=== PATIENT | male | born 1965 | race African-American/Black ===

== ENCOUNTER 2016-12-26 10:24 | Inpatient (IN) | payer OTHER ==
--- NOTE | 2016-12-26 11:09 | PDOC ---
History of Present Illness - General History Source: Patient, Old Records Exam Limitations: No Limitations - History of Present Illness Initial Comments: 12/26/16 13:33 The patient is a 51 year old male with past medical history of asthma, COPD, diabetes, hypertension, dyslipidemia, recurrent hidradenitis suppurativa, obesity, and on home oxygen, who presents with 3 day history of left groin pain. Patient states that he has never had this pain before. He describes the pain as sharp, 10/10 in severity, and radiating to left lower quadrant. The patient is also complaining of some drainage from axilla bilaterally (L>R). He has been treating his symptoms with hot compresses which has resulted in mild alleviation. Patient endorsed dull headache, 4/10 in severity, circumferential and worse with movement. The patient took advil once and experience moderate alleviate of pain. <Marciano Rdz - Last Filed: 12/26/16 13:33> <Jazmine Foreman - Last Filed: 01/03/17 22:24> - General Chief Complaint: Abscess Boil Stated Complaint: ABSCESS ON GROIN, BOTH AXILLA Time Seen by Provider: 12/26/16 11:09 Past History <Marciano Rdz - Last Filed: 12/26/16 13:33> - Past Medical History Asthma: Yes Cancer: No COPD: Yes Diabetes: Yes (on oral meds) HTN: Yes Hypercholesterolemia: Yes Seizures: No - Surgical History Neurologic Surgery: No - Family Disease History Family Disease History: Diabetes: Father, Heart Disease: Father - Psycho/Social/Smoking Cessation Hx Anxiety: No Suicidal Ideation: No Smoking Status: Yes Smoking History: Former smoker Have you smoked in the past 12 months: Yes Number of Cigarettes Smoked Daily: 3 If you are a former smoker, when did you quit?: 4 MO Information on smoking cessation initiated: No 'Breaking Loose' booklet given: 09/28/15 Hx Alcohol Use: No Drug/Substance Use Hx: No Substance Use Type: None Hx Substance Use Treatment: No <Jazmine Foreman - Last Filed: 01/03/17 22:24> - Past Medical History Allergies/Adverse Reactions: Allergies Allergy/AdvReac Type Severity Reaction Status Date / Time celecoxib [From Celebrex] AdvReac Severe Rectal Verified 12/26/16 10:31 bleeding & hemoptysis naproxen [From Naprosyn] AdvReac Verified 12/26/16 10:31 Home Medications: Ambulatory Orders Albuterol 0.083% Nebulizer Silvia [Ventolin 0.083% Nebulizer Soln -] 1 neb NEB Q4H PRN 04/10/14 Albuterol Sulfate Inhaler - [Ventolin HFA Inhaler -] 2 inh PO Q4H PRN 04/10/14 Aspirin [Aspirin EC] 81 mg PO DAILY 04/10/14 Furosemide [Lasix -] 80 mg PO DAILY 04/10/14 Methadone [Dolophine -] 110 mg PO DAILY 04/10/14 Lisinopril [Prinivil] 40 mg PO DAILY 04/11/15 Metformin HCl [Glucophage -] 500 mg PO BID 12/26/16 Amlodipine Besylate [Norvasc -] 5 mg PO DAILY tablet 12/29/16 Levofloxacin [Levaquin -] 750 mg PO DAILY #7 tablet 12/29/16 Neomy Sulf/Bacitrac Zn/Poly [Neosporin Top Ointment -] 1 applic TP BID applic 12/29/16 Oxycodone HCl [Roxicodone -] 10 mg PO Q4H PRN #0 tablet MDD 40 12/29/16 Metronidazole [Flagyl -] 500 mg PO TID #29 tablet 12/30/16 Review of Systems - Review of Systems Able to Perform ROS?: Yes Comments:: 12/26/16 13:34 GENERAL/CONSTITUTIONAL: No fever or chills. No weakness. HEAD, EYES, EARS, NOSE AND THROAT: No change in vision. No ear pain or discharge. No sore throat. CARDIOVASCULAR: No chest pain or shortness of breath. RESPIRATORY: No cough, wheezing, or hemoptysis. GASTROINTESTINAL: (+) LLQ pain. No nausea, vomiting, diarrhea or constipation. GENITOURINARY: No dysuria, frequency, or change in urination. MUSCULOSKELETAL: (+) Left groin pain. Bilateral axilla drainage. No joint or muscle swelling or pain. No neck or back pain. SKIN: No rash NEUROLOGIC: (+) Headache No Vertigo, loss of consciousness, or change in strength/sensation. ENDOCRINE: No increased thirst. No abnormal weight change. HEMATOLOGIC/LYMPHATIC: No anemia, easy bleeding, or history of blood clots. ALLERGIC/IMMUNOLOGIC: No hives or skin allergy. <Marciano Rdz - Last Filed: 12/26/16 13:33> *Physical Exam - Vital Signs Last Vital Signs Temp Pulse Resp BP Pulse Ox 98.7 F 79 20 157/72 95 12/26/16 10:26 12/26/16 10:26 12/26/16 10:26 12/26/16 10:26 12/26/16 10:26 - Physical Exam Comments: 12/26/16 13:34 GENERAL: Awake, alert, and fully oriented, in no acute distress HEAD: No signs of trauma EYES: PERRLA, EOMI, sclera anicteric, conjunctiva clear ENT: Auricles normal inspection, hearing grossly normal, nares patent, oropharynx clear without exudates. Moist mucosa NECK: Normal ROM, supple, no lymphadenopathy, JVD, or masses LUNGS: Breath sounds equal, clear to auscultation bilaterally. No wheezes, and no crackles HEART: Regular rate and rhythm, normal S1 and S2, no murmurs, rubs or gallops ABDOMEN: Soft, nontender, normoactive bowel sounds. No guarding, no rebound. No masses PENIS: (+) Scrotal cellulitis EXTREMITIES: Normal range of motion, no edema. No clubbing or cyanosis. No cords, erythema, or tenderness NEUROLOGICAL: Cranial nerves II through XII grossly intact. Normal speech, normal gait SKIN: Warm, Dry, normal turgor, no rashes or lesions noted. <Marciano Rdz - Last Filed: 12/26/16 13:33> - Vital Signs Last Vital Signs Temp Pulse Resp BP Pulse Ox 98.7 F 79 20 157/72 95 12/26/16 10:26 12/26/16 10:26 12/26/16 10:26 12/26/16 10:26 12/26/16 10:26 <Jazmine Foreman - Last Filed: 01/03/17 22:24> ED Treatment Course - LABORATORY CBC & Chemistry Diagram: 12/30/16 06:00 12/28/16 05:35 <Jazmine Foreman - Last Filed: 01/03/17 22:24> Medical Decision Making - Medical Decision Making 07/24/17 22:23 pt presents to the ED with cellulitis of the scrotum. History of hydradenitis with multiple abscesses. No clear area of fluctuance identified on exam or on bedside US. Given location of cellulitis and history of DM, will admit to medicine for IV antibiotics. <Jazmine Foreman - Last Filed: 01/03/17 22:24> *DC/Admit/Observation/Transfer - Attestations Scribe Attestion: 12/26/16 13:34 Documentation prepared by Marciano Rdz, acting as medical imaging technician for Jazmine Foreman MD. <Marciano Rdz - Last Filed: 12/26/16 13:33> - Discharge Dispostion Admit: Yes Decision to Admit order Date/Time: 12/26/16 15:19 <Jazmine Foreman - Last Filed: 01/03/17 22:24> Diagnosis at time of Disposition: Cellulitis, scrotum - Discharge Dispostion Disposition: VNS/HOME HEALTH CARE Condition at time of disposition: Improved - Prescriptions - Referrals
[2016-12-26] MEDS ORDERED: morphine CARPU-JECT 4 MG/1 ML DISP.SYRIN IVPUSH ONE (13:28)
[2016-12-26] MEDS ORDERED: AMPICILLIN NA/SULBACTAM NA 3 GM in SODIUM CHLORIDE 100 ML IVPB ONE (13:29)
[2016-12-26] MEDS ORDERED: NYSTATIN 100000 UNIT/GM TOPICAL OINTMENT 15 GM TUBE TP SCH (13:30)
[2016-12-26 13:39] LABS: BASOPHIL 0.3 % (0-2.0); EOSINOPHIL 0.2 % (0-4.5); MCH 23.2 pg (25.7-33.7); MCHC 31.3 g/dl (32.0-35.9); MEAN CELL VOLUME 74.1 fl (80-96); MEAN PLT VOLUME 7.9 fl (7.5-11.1); NEUTROPHILS 70.2 % (42.8-82.8); PLATELET COUNT 229 K/MM3 (134-434); RDW 16.6 % (11.9-15.9); WHITE BLOOD COUNT 9.6 K/mm3 (4.0-10.0)
[2016-12-26] MEDS ORDERED: CLINDAMYCIN 600MG PREMIX IVPB 50 ML IVPB ONE ×2 (13:41→14:00)
[2016-12-26] MEDS ORDERED: morphine CARPU-JECT 4 MG/1 ML DISP.SYRIN ONE (13:59)
[2016-12-26 14:04] LABS: ALBUMIN 3.3 g/dl (3.4-5.0); ANION GAP 6 (8-16); BILIRUBIN,TOTAL 0.2 mg/dL (0.2-1.0); CALCIUM 8.8 mg/dL (8.5-10.1); CO2 37 mmol/L (21-32); CREATININE 0.7 mg/dL (0.7-1.3); GLUCOSE,RANDOM 90 mg/dL (74-106); SGOT/AST 14 U/L (15-37); SGPT/ALT 15 U/L (12-78); TOT PROT 7.6 g/dl (6.4-8.2)
[2016-12-26 14:05] LABS: ALK PHOS 87 U/L (45-117)
--- NOTE | 2016-12-26 18:07 | HP ---
CHIEF COMPLAINT: left scrotal swelling and pain PCP: Dr. Rodriguez HISTORY OF PRESENT ILLNESS: Patient is a 51 year old male with a significant past medical history of asthma, COPD (home oxygen depending @ 3 liters at home) , diabetes, hypertension, dyslipidemia, polysubstance abuse, recurrent hidradenitis suppurativa, morbid obesity and chronic back pain. He presents to the ED today with a 3 day history of left groin pain. Patient states that he has never had this pain before. He describes the pain as sharp, 10/10 in severity, and radiating to left lower quadrant. Patient further states that he has drainage from axilla bilaterally (L>R). He has been treating his symptoms with hot compresses with some relief of the pain. He is on methadone and attends 2 [facility] methadone clinic. ER course was notable for: (1) WBC 9.6 (2) Lactic acid 1.4 (3) hidradenitis suppravita with increased drainage of left axilla with multiple open lesions (4) left scrotal induration, + pain, awaiting scrotal ultrasound Recent Travel: denies PAST MEDICAL HISTORY: asthma, COPD (home oxygen depending @ 3 liters at home), diabetes, hypertension, dyslipidemia, recurrent hidradenitis suppurativa, and morbid obesity PAST SURGICAL HISTORY: Social History: Smoking: denies Alcohol: denies Drugs: denies Family History: Allergies celecoxib [From Celebrex] Adverse Reaction (Severe, Verified 12/26/16 10:31) Rectal bleeding & hemoptysis naproxen [From Naprosyn] Adverse Reaction (Verified 12/26/16 10:31) HOME MEDICATIONS: Home Medications Medication Instructions Recorded Albuterol 0.083% Nebulizer Sivlia 1 neb NEB Q4H PRN 04/10/14 [Ventolin 0.083% Nebulizer Soln -] Albuterol Sulfate Inhaler - 2 inh PO Q4H PRN 04/10/14 [Ventolin HFA Inhaler -] Aspirin [Aspirin EC] 81 mg PO DAILY 04/10/14 Furosemide [Lasix -] 80 mg PO DAILY 04/10/14 Methadone [Dolophine -] 110 mg PO DAILY 04/10/14 Lisinopril [Prinivil] 40 mg PO DAILY 04/11/15 Metformin HCl [Glucophage -] 500 mg PO BID 12/26/16 REVIEW OF SYSTEMS CONSTITUTIONAL: Absent: fever, chills, diaphoresis, generalized weakness, malaise, loss of appetite, weight change HEENT: Absent: rhinorrhea, nasal congestion, throat pain, throat swelling, difficulty swallowing, mouth swelling, ear pain, eye pain, visual changes CARDIOVASCULAR: Absent: chest pain, syncope, palpitations, irregular heart rate, lightheadedness , peripheral edema RESPIRATORY: Absent: cough, shortness of breath, dyspnea with exertion, orthopnea, wheezing, stridor, hemoptysis GASTROINTESTINAL: Absent: abdominal pain, abdominal distension, nausea, vomiting, diarrhea, constipation, melena, hematochezia GENITOURINARY: Absent: dysuria, frequency, urgency, hesitancy, hematuria, flank pain, genital pain MUSCULOSKELETAL: Absent: myalgia, arthralgia, joint swelling, back pain, neck pain SKIN: Absent: rash, itching, pallor HEMATOLOGIC/IMMUNOLOGIC: Absent: easy bleeding, easy bruising, lymphadenopathy, frequent infections ENDOCRINE: Absent: unexplained weight gain, unexplained weight loss, heat intolerance, cold intolerance NEUROLOGIC: Absent: headache, focal weakness or paresthesias, dizziness, unsteady gait, seizure, mental status changes, bladder or bowel incontinence PSYCHIATRIC: Absent: anxiety, depression, suicidal or homicidal ideation, hallucinations. PHYSICAL EXAMINATION GENERAL: Awake, alert, and fully oriented, in no acute distress. HEAD: Normal with no signs of trauma. EYES: Pupils equal, round and reactive to light, extraocular movements intact, sclera anicteric, conjunctiva clear. No lid lag. EARS, NOSE, THROAT: Ears normal, nares patent, oropharynx clear without exudates. Moist mucous membranes. NECK: Normal range of motion, supple without lymphadenopathy, JVD, or masses. LUNGS: diminished breath sounds, expiratory wheezing HEART: Regular rate and rhythm, normal S1 and S2 without murmur, rub or gallop. ABDOMEN: (+) LLQ pain. No nausea, vomiting, diarrhea or constipation. MUSCULOSKELETAL: Normal range of motion at all joints. No bony deformities or tenderness. No CVA tenderness. UPPER EXTREMITIES: 2+ pulses, warm, well-perfused. No cyanosis. No clubbing. No peripheral edema. LOWER EXTREMITIES: 2+ pulses, warm, well-perfused. No calf tenderness. No peripheral edema. NEUROLOGICAL: Normal speech. Normal gait. PSYCHIATRIC: Cooperative. Good eye contact. Appropriate mood and affect. SKIN: (+) Left groin pain. Bilateral axilla drainage, +recurrent hidradenitis suppurativa of groin, axilla, buttocks GENITOURINARY: No dysuria, frequency, or change in urination. ASSESSMENT/PLAN: Patient is a 51 year old male with a significant past medical history of asthma , COPD (home oxygen depending @ 3 liters at home), diabetes, hypertension, dyslipidemia, recurrent hidradenitis suppurativa, polysubstance abuse, morbid obesity and chronic back pain. He presents to the ED today with a 3 day history of left groin pain. Patient states that he has never had this pain before. He describes the pain as sharp, 10/10 in severity, and radiating to left lower quadrant. Patient further states that he has drainage from axilla bilaterally (L>R). He has been treating his symptoms with hot compresses with some relief of the pain. He is on methadone and attends 2 [facility] methadone clinic. ID: Cellulitis of left scrotum with +recurrent hidradenitis suppurativa of groin, axilla, buttocks Assessment/Plan: No signs of sepsis: patient is afebrile, no leukocytosis, lactic acid normal, blood cultures and wound cultures sent Will treat with Clindamycin 600mg IVPB for multiple abscess/open lesions, pt is also a diabetic. ID consult for further antibiotic therapy recommendations Patient has recurrent skin infection which he treats with triple antibiotic topical therapy, but there are open lesions of the left axilla Scrotal ultrasound pending to rule out scrotal abscess Has a wound care physician whom he follows outpatient Monitor CBC, monitor labs and vitals ID consult Cardiology: Hypertension Assessment/Plan: On Lasix 80mg, on Lisinopril 40mg daily Monitor BP Trend Psyche: Polysubstance abuse Assessment/Plan: Methadone 110mg on home med rec Dr. Titi Anton consulted for Methadone monitoring and orders Pulmonary: COPD/Asthma Assessment/Plan: In no acute exacerbation Home oxygen dependent @ 3 liters Albuterol PRN Endocrine: Diabetes Melliltus Assessment/Plan: hmga1c in a.m. Hold metformin, order Novolog sliding scale F.E.N. Fluids: tolerating PO Electrolytes: monitor Nutrition: diabetic diet Prophylaxis: DVT: Lovenox 40mg daily GI: deferred Disposition: Requires inpatient hospitalization. Full code.
[2016-12-26] MEDS ORDERED: oxyCODONE HCL 5 MG TABLET PO PRN (19:00)
[2016-12-26 19:20] VITALS: BMI 43.5
[2016-12-26] MEDS: oxyCODONE HCL 5 MG TABLET PO PRN (20:51)
[2016-12-26] MEDS: CLINDAMYCIN 600MG PREMIX IVPB 50 ML IVPB SCH (20:51)
[2016-12-26] MEDS: INSULIN SLIDING SCALE (NOVOLOG) 1 VIAL SQ SCH (21:43)
[2016-12-26] MEDS: NEOMYCIN/POLYMYXIN/BACITRACIN (TRIPLE ANTIBIOTIC) 28 GM OINTMENT TP SCH (21:44)
[2016-12-26] MEDS ORDERED: NEOMYCIN/POLYMYXIN/BACITRACIN (TRIPLE ANTIBIOTIC) 28 GM OINTMENT TP SCH (22:00)
[2016-12-27] MEDS: oxyCODONE HCL 5 MG TABLET PO PRN ×4 (00:49→23:36)
[2016-12-27] MEDS: CLINDAMYCIN 600MG PREMIX IVPB 50 ML IVPB SCH ×2 (02:54→08:16)
[2016-12-27] MEDS: INSULIN SLIDING SCALE (NOVOLOG) 1 VIAL SQ SCH ×4 (06:30→21:25)
[2016-12-27] MEDS ORDERED: METHADONE HCL 10 MG TABLET ONE (06:43)
[2016-12-27] MEDS ORDERED: METHADONE HCL 40 MG DISPERSABLE TABLET ONE (06:43)
[2016-12-27] MEDS: METHADONE 80 MG, METHADONE 30 MG PO SCH (06:44)
[2016-12-27 08:10] LABS: BASOPHIL 0.4 % (0-2.0); EOSINOPHIL 0.6 % (0-4.5); MCHC 30.4 g/dl (32.0-35.9); MEAN CELL VOLUME 75.6 fl (80-96); MEAN PLT VOLUME 7.9 fl (7.5-11.1); NEUTROPHILS 67.4 % (42.8-82.8); PLATELET COUNT 208 K/MM3 (134-434); RDW 16.7 % (11.9-15.9); WHITE BLOOD COUNT 9.3 K/mm3 (4.0-10.0)
[2016-12-27] MEDS: ENOXAPARIN NA (PORCINE) 40 MG/0.4 ML DISP.SYRIN SQ SCH (09:14)
[2016-12-27] MEDS: LISINOPRIL 20 MG TABLET (FP) PO SCH (09:15)
[2016-12-27] MEDS: NEOMYCIN/POLYMYXIN/BACITRACIN (TRIPLE ANTIBIOTIC) 28 GM OINTMENT TP SCH ×2 (09:15→21:25)
[2016-12-27] MEDS: ASPIRIN COATED 81 MG TABLET.EC PO SCH (09:15)
[2016-12-27] MEDS: FUROSEMIDE 40 MG TABLET (FP) PO SCH (09:15)
[2016-12-27] MEDS ORDERED: METHADONE HCL 40 MG DISPERSABLE TABLET PO SCH (10:00)
--- NOTE | 2016-12-27 10:01 | PN ---
Progress Note (short form) - Note Progress Note: ID Consult dictated L scrotal abscess Possible sepsis secondary to scrotal abscess Diabetes mellitus Hx Hydradenitis supprativa Hx polysubstance abuse- HIV (-) per pt Await c/s Urology evaulation Empiric Vancomycin/ Zosyn Decline HIV testing
[2016-12-27] MEDS ORDERED: INSULIN (NOVOLOG) ASPART 100 UNITS/ML 10ML VIAL ONE (11:04)
--- NOTE | 2016-12-27 11:15 | PN ---
Progress Note (short form) - Note Progress Note: Subjective: The patient was seen and examined at the bedside, he reports he is feeling better today but has left scrotal abscess. He also reports hidradenitis suppurative b/l axilla, in sacral area, and under breasts. Current Medications Generic Name Dose Route Start Last Admin Trade Name Freq PRN Reason Stop Dose Admin Albuterol Sulfate amp 12/27/16 11:18 Ventolin 0.083% Nebulizer Soln - NEB Q4H PRN ASTHMA Albuterol Sulfate 2 puff 12/27/16 11:18 Ventolin Hfa Inhaler - IH Q4H PRN ASTHMA Aspirin 81 mg 12/27/16 10:00 12/27/16 09:15 Ecotrin - PO 81 mg DAILY SHAYLA Administration Enoxaparin Sodium 40 mg 12/27/16 10:00 12/27/16 09:14 Lovenox - SQ 40 mg DAILY SHAYLA Administration Furosemide 80 mg 12/27/16 10:00 12/27/16 09:15 Lasix - PO 80 mg DAILY SHAYLA Administration Piperacillin Sod/Tazobactam Sod 100 mls @ 200 mls/hr 12/27/16 11:30 Zosyn 4.5gm Ivpb (Pre-Docked) IVPB Q6H-IV SHAYLA Protocol Vancomycin HCl 250 mls @ 166.667 mls/hr 12/27/16 12:00 Vancomycin (Pre-Docked) IVPB Q12H SHAYLA Insulin Aspart 1 vial 12/26/16 22:00 12/27/16 11:15 Novolog Vial Sliding Scale - SQ 2 unit ACHS SHAYLA Administration Protocol Lisinopril 40 mg 12/27/16 10:00 12/27/16 09:15 Prinivil PO 40 mg DAILY SHAYLA Administration Metformin HCl 500 mg 12/27/16 11:30 Glucophage - PO BID SHAYLA Methadone HCl 80 mg/ Methadone 110 mg 12/27/16 06:45 12/27/16 06:44 HCl 30 mg PO 110 mg DAILY@0600 SHAYLA Administration Neomycin/Polymyxin/Bacitracin 1 applic 12/26/16 22:00 12/27/16 09:15 Neosporin Topical Ointment - TP 1 applic BID SHAYLA Administration Oxycodone HCl 5 mg 12/26/16 20:35 12/27/16 00:49 Roxicodone - PO 5 mg Q4H PRN Administration PAIN Objective: Vital Signs Period Temp Pulse Resp BP Sys/Pinto Pulse Ox Last 24 Hr 97.8 F-98.0 F 50-64 17-20 136-157/70-86 97-98 Physical Exam: General: Morbidly obese, NAD Lungs: CTA bilaterally Heart: RRR, S1S2 Abd: Soft, non-tender. Normoactive bowel sounds : Left scrotum with abscess Skin: B/l axilla abscess, draining. Left axilla with sinus tract. Sacral region with abscess Neuro: CN 2-12 intact CBCD WBC 9.3 K/mm3 (4.0-10.0) 12/27/16 06:40 RBC 4.40 M/mm3 (4.00-5.60) 12/27/16 06:40 Hgb 10.1 GM/dL (11.7-16.9) L 12/27/16 06:40 Hct 33.2 % (35.4-49) L 12/27/16 06:40 MCV 75.6 fl (80-96) L 12/27/16 06:40 MCHC 30.4 g/dl (32.0-35.9) L 12/27/16 06:40 RDW 16.7 % (11.9-15.9) H 12/27/16 06:40 Plt Count 208 K/MM3 (134-434) 12/27/16 06:40 MPV 7.9 fl (7.5-11.1) 12/27/16 06:40 CMP Sodium 139 mmol/L (136-145) 12/26/16 13:30 Potassium 3.9 mmol/L (3.5-5.1) D 12/26/16 13:30 Chloride 96 mmol/L (98-107) L 12/26/16 13:30 Carbon Dioxide 37 mmol/L (21-32) H 12/26/16 13:30 Anion Gap 6 (8-16) L 12/26/16 13:30 BUN 14 mg/dL (7-18) 12/26/16 13:30 Creatinine 0.7 mg/dL (0.7-1.3) 12/26/16 13:30 Creat Clearance w eGFR > 60 (>60) 12/26/16 13:30 Random Glucose 90 mg/dL (74-106) D 12/26/16 13:30 Calcium 8.8 mg/dL (8.5-10.1) 12/26/16 13:30 Total Bilirubin 0.2 mg/dL (0.2-1.0) 12/26/16 13:30 AST 14 U/L (15-37) L D 12/26/16 13:30 ALT 15 U/L (12-78) D 12/26/16 13:30 Alkaline Phosphatase 87 U/L (45-117) 12/26/16 13:30 Total Protein 7.6 g/dl (6.4-8.2) 12/26/16 13:30 Albumin 3.3 g/dl (3.4-5.0) L 12/26/16 13:30 Microbiology 12/26/16 13:42 Abscess Gram Stain - Final Assessment: This is a 50 year old male with PMHx of morbid obesity, herniated lumbosacral spine disc, chronic back pain, IDDM, COPD, severe hidradenitis suppurativa with chronic tracts/abscess/scarring to axilla who presented to the ED with bloody drainage from left axilla and was admitted for further evaluation and management of his emergent condition. Plan: 1) ID: Left scrotal abscess, Hx of hidradentitis suppurativa - Scrotal ultrasound with abscess - Continue empiric vancomycin and zosyn - Patient refused HIV testing, stating he is negative - F/u urology consult for possible scrotal I&D - Appreciate ID consult 2) Pulmonary: COPD - Continue Albuterol nebs - O2 via NC prn - Stable 3) Endocrine: IDDM - Hgb A1c 6.1! - Patient is refusing ISS - Will restart home Metformin - BGM ACHS 4) Cardiology: HTN - Continue lisinopril - Continue Norvasc 5) F/E/N: - Monitor electrolytes - Diabetic diet 6) Prophylaxis: - Lovenox 40mg sq daily - OOB ambulating 7) Dispo: - Requires continued inpatient care CODE STATUS: FULL CODE Visit type - Emergency Visit Emergency Visit: Yes ED Registration Date: 12/26/16 Care time: The patient presented to the Emergency Department on the above date and was hospitalized for further evaluation of their emergent condition. - New Patient This patient is new to me today: Yes Date on this admission: 12/28/16 - Critical Care Critical Care patient: No
[2016-12-27] MEDS ORDERED: ALBUTEROL SO4 0.083% IH SOL 2.5 MG/3 ML VIAL.NEB. NEB PRN (11:18)
[2016-12-27] MEDS ORDERED: ALBUTEROL SO4 6.7 GM HFA INHALER IH PRN (11:18)
[2016-12-27] MEDS: VANCOMYCIN 1 GRAM (PRE-DOCKED) 250 ML IVPB SCH ×2 (11:25→23:04)
[2016-12-27] MEDS: PIPERACILLIN/TAZOB 4.5 GM 100 ML IVPB SCH ×3 (11:26→20:45)
[2016-12-27] MEDS: metFORMIN HCL 500 MG TABLET (FP) PO SCH ×2 (12:04→17:00)
--- NOTE | 2016-12-27 14:57 | CON.GU ---
Consult Consult Specialty:: Urology Referred by:: Geraldo Reason for Consultation:: L scrotal abscess - History of Present Illness Chief Complaint: L scrotal swelling and pain History of Present Illness: 51 yo m w PMH asthma, COPD O2 dependent, DM, HTN, HLD, recurrent hydradenitis supporativa, morbid obesity pres to ED c/o L scrotal swelling and pain x 3 days. He was found to have L scrotal abscess on u/s and scrotal cellulitis and cons req for possible I & D. - History Source History Provided By: Patient, Medical Record Limitations to Obtaining History: No Limitations - Past Medical History Cardio/Vascular: Yes: HTN, Hyperlipdemia Pulmonary: Yes: Asthma, COPD Musculoskeletal: Yes: Chronic low back pain - Alcohol/Substance Use Hx Alcohol Use: No - Smoking History Smoking history: Former smoker Have you smoked in the past 12 months: Yes Aproximately how many cigarettes per day: 3 If you are a former smoker, when did you quit?: 4 MO Home Medications - Allergies Allergies/Adverse Reactions: Allergies Allergy/AdvReac Type Severity Reaction Status Date / Time celecoxib [From Celebrex] AdvReac Severe Rectal Verified 12/26/16 10:31 bleeding & hemoptysis naproxen [From Naprosyn] AdvReac Verified 12/26/16 10:31 - Home Medications Home Medications: Ambulatory Orders Albuterol 0.083% Nebulizer Silvia [Ventolin 0.083% Nebulizer Soln -] 1 neb NEB Q4H PRN 04/10/14 Albuterol Sulfate Inhaler - [Ventolin HFA Inhaler -] 2 inh PO Q4H PRN 04/10/14 Aspirin [Aspirin EC] 81 mg PO DAILY 04/10/14 Furosemide [Lasix -] 80 mg PO DAILY 04/10/14 Methadone [Dolophine -] 110 mg PO DAILY 04/10/14 Lisinopril [Prinivil] 40 mg PO DAILY 04/11/15 Metformin HCl [Glucophage -] 500 mg PO BID 12/26/16 Family Disease History - Family Disease History Family Disease History: Diabetes: Father, Heart Disease: Father, Mother (renal) , Other: Sister (substance abuse) Review of Systems - Review of Systems Genitourinary: reports: Testicular Swelling Physical Exam- Vital Signs: Vital Signs Temperature 98.0 F 12/27/16 14:47 Pulse Rate 82 12/27/16 14:45 Respiratory Rate 20 12/27/16 09:00 Blood Pressure 147/74 12/27/16 08:52 O2 Sat by Pulse Oximetry (%) 97 12/27/16 09:00 Constitutional: Yes: No Distress, Calm, Obese Gastrointestinal: Yes: Abdomen, Obese Scrotum: Yes: Erythema, Induration (L scrotal abscess spontaneously draining purulent material), Tenderness, Other Labs: CBC, BMP 12/27/16 06:40 Imaging - Results Ultrasound: Report Reviewed Assessment/Plan Imp: hydradenitis supporativa of axillae and L scrotum, scrotal cellulitis, L scrotal abscess (draining) Rec: cont iv abxs, wound care eval. No need for I & D as abscess is already draining.
--- NOTE | 2016-12-27 16:57 | EKG ---
Test Reason : Blood Pressure : / mmHG Vent. Rate : 045 BPM Atrial Rate : 045 BPM P-R Int : 186 ms QRS Dur : 086 ms QT Int : 512 ms P-R-T Axes : 052 001 010 degrees QTc Int : 442 ms SINUS BRADYCARDIA OTHERWISE NORMAL ECG NO PREVIOUS ECGS AVAILABLE Confirmed by TRAV SIFUENTES MD ([id number]) on 12/27/2016 4:57:02 PM Referred By: LUIS GAY Confirmed By:TRAV SIFUENTES MD
--- NOTE | 2016-12-27 18:38 | CONSULT ---
Consult Detox [facility] Reason for Current Admission/Consult: h/o opioid dependency on opioid treatment program at [facility] receiving methadone 110mg /d who was admitted because of recurrent hidradenitis supprative and left groin pain. - History History of Present Illness: 51 y/o male pt with previous heroin dependency at present on OTP- opioid treatment program ,dosed with metadone 110mg /d. - History Source History Provided By: Patient Limitations to Obtaining History: No Limitations - Alcohol/Substance Use Hx Alcohol Use: No Hx Substance Use: Yes (heroin in the past on methadone tx program x many yrs. ) Hx Substance Use Treatment: Yes ([facility]) - Past Medical History Cardio/Vascular: Yes: HTN, Hyperlipdemia Pulmonary: Yes: Asthma, COPD Infectious Disease: Yes: Other (recurrent hidradenitis ) Musculoskeletal: Yes: Chronic low back pain - Significant Medical Findings: 51 y/o obese male pt sitting up in bed with O2 by NC . pt is aox3 ,appearing comfortable and cooperative skin - no diaphoresis , no piloerection small pupils, errl, eom intact no nausea, vomiting or diarrhea neuro intact Assessment Plan - Diagnosis (1) COPD (chronic obstructive pulmonary disease) Status: Chronic Qualifiers: Chronic bronchitis type: unspecified (2) obesity Status: Chronic (3) Hidradenitis suppurativa Status: Acute (4) HTN Status: Chronic (5) Nicotine dependence Status: Inactive Qualifiers: Nicotine product type: cigarettes Substance use status: uncomplicated Qualified Code(s): F17.210 - Nicotine dependence, cigarettes, uncomplicated Comment: counseled cessation - trying (6) Methadone maintenance therapy patient Status: Chronic - Plan Plan: Pt dose verified ,he is a pt at [facility] . Pt dose is methadone 110mg /d . He is stable on this dose and has no signs of withdrawal . therefore continue pt on maintenance dose .
[2016-12-28] MEDS: PIPERACILLIN/TAZOB 4.5 GM 100 ML IVPB SCH ×2 (02:14→08:59)
[2016-12-28] MEDS ORDERED: METHADONE HCL 10 MG TABLET ONE (06:01)
[2016-12-28] MEDS ORDERED: METHADONE HCL 40 MG DISPERSABLE TABLET ONE (06:01)
[2016-12-28] MEDS: METHADONE 80 MG, METHADONE 30 MG PO SCH (06:04)
[2016-12-28] MEDS: INSULIN SLIDING SCALE (NOVOLOG) 1 VIAL SQ SCH ×4 (06:04→21:23)
[2016-12-28] MEDS: metFORMIN HCL 500 MG TABLET (FP) PO SCH ×2 (06:04→16:50)
[2016-12-28] MEDS ORDERED: INSULIN (NOVOLOG) ASPART 100 UNITS/ML 10ML VIAL ONE (06:25)
[2016-12-28 07:23] LABS: MCH 23.2 pg (25.7-33.7); MCHC 30.9 g/dl (32.0-35.9); MEAN CELL VOLUME 75.1 fl (80-96); MEAN PLT VOLUME 7.9 fl (7.5-11.1); PLATELET COUNT 206 K/MM3 (134-434); RDW 16.8 % (11.9-15.9); WHITE BLOOD COUNT 8.9 K/mm3 (4.0-10.0)
[2016-12-28 08:00] LABS: ALBUMIN 2.9 g/dl (3.4-5.0); ANION GAP 4 (8-16); CALCIUM 8.6 mg/dL (8.5-10.1); CO2 38 mmol/L (21-32); GLUCOSE,RANDOM 92 mg/dL (74-106); SGOT/AST 9 U/L (15-37); SGPT/ALT 13 U/L (12-78)
[2016-12-28 08:03] LABS: ALK PHOS 78 U/L (45-117); BILIRUBIN,TOTAL 0.2 mg/dL (0.2-1.0); CREATININE 0.8 mg/dL (0.7-1.3); TOT PROT 6.9 g/dl (6.4-8.2)
[2016-12-28] MEDS: FUROSEMIDE 40 MG TABLET (FP) PO SCH (09:50)
[2016-12-28] MEDS: ENOXAPARIN NA (PORCINE) 40 MG/0.4 ML DISP.SYRIN SQ SCH (09:50)
[2016-12-28] MEDS: ASPIRIN COATED 81 MG TABLET.EC PO SCH (09:50)
[2016-12-28] MEDS: LISINOPRIL 20 MG TABLET (FP) PO SCH (09:50)
[2016-12-28] MEDS: oxyCODONE HCL 5 MG TABLET PO PRN ×2 (09:52→21:18)
[2016-12-28] MEDS: NEOMYCIN/POLYMYXIN/BACITRACIN (TRIPLE ANTIBIOTIC) 28 GM OINTMENT TP SCH ×2 (09:53→21:19)
--- NOTE | 2016-12-28 11:14 | CONS ---
INFECTIOUS DISEASE CONSULTATION DATE OF CONSULTATION: DATE OF DICTATION: 12/27/2016 HISTORY OF PRESENT ILLNESS: The patient is a 51-year-old, morbidly obese, diabetic male evaluated for left scrotal abscess. The patient reports worsening left groin pain for 3 days prior to admission. He began to experience pain in the left scrotal area. It became progressively worse and began to radiate to the left lower quadrant of the abdomen. He became concerned because of the increasing pain. He presented to the emergency room where he was diagnosed with scrotal cellulitis. An ultrasound of the scrotum was performed and showed a soft tissue abscess in the scrotal wall. He denies any associated fever or chills. He has had no voiding difficulty. He denies any dysuria or hematuria. No complaints of urinary retention. The patient denies prior history of scrotal infection. He has a history of severe hidradenitis suppurativa and has had multiple bouts involving infections of the glands in his axillary areas, inguinal areas, and perirectal area. He denies history of MRSA infection. The patient is sexually active with his . He reports he is monogamous for the last 10-15 years. Denies history of sexually transmitted diseases. He has a history of polysubstance abuse. However, denies injection drug use. States he tested HIV negative several years ago. PAST MEDICAL HISTORY: Positive for diabetes mellitus, morbid obesity, COPD, chronic asthma, hypertension, hyperlipidemia, and hidradenitis suppurativa. ALLERGIES: CELEBREX and NAPROXEN. MEDICATIONS: Include Ventolin, aspirin, Lasix, methadone, Prinivil, Glucophage. SOCIAL HISTORY: Lives at home with his significant other. History of polysubstance abuse, on methadone. Former smoker. SYSTEMS REVIEW: Neurologic: No loss of consciousness, seizure activity, focal weakness. Cardiac: Negative chest pain and palpitations. Respiratory: Negative cough or sputum production. Gastrointestinal: Negative vomiting or diarrhea. Genitourinary: As per HPI. LABORATORY DATA: White count 9.3, hematocrit 33.2, platelet count 208. BUN 14, creatinine 0.7. Blood cultures are pending. PHYSICAL EXAMINATION: General: He is awake and alert. He is in no acute distress, morbidly obese. Vital Signs: Temperature 98; blood pressure 147/74; pulse 50, irregular; respirations 20 per minute. HEENT: Sclerae anicteric. Heart: Sounds S1 and S2. Lungs: Clear. Abdomen: Obese, soft, nontender. Inguinal Area: There is an indurated subcutaneous mass-like lesion in the left upper scrotum, likely phlegmon/organizing soft tissue abscess. It is tender to touch. There is slight erythema. There is no expressible pus. No penile shaft lesions noted. Extremities: Positive for edema and positive for chronic venous stasis dermatitis, lower extremities bilaterally. There are multiple scars present in both axillary areas, inguinal areas, and perirectal areas corresponding to previous hidradenitis suppurativa. IMPRESSION: 1. Left scrotal abscess. 2. Possible sepsis secondary to scrotal abscess. 3. Diabetes mellitus. 4. History of hidradenitis suppurativa. 5. History of polysubstance abuse. Human immunodeficiency virus negative per patient. Await cultures. Urology evaluation for possible incision and drainage. Empiric antibiotic coverage in this diabetic male with vancomycin and Zosyn. No clinical evidence at this time to suggest a Misty gangrene. Patient was offered HIV testing and declined. LOLA HEREDIA M.D. [id number]
[2016-12-28] MEDS: VANCOMYCIN 1 GRAM (PRE-DOCKED) 250 ML IVPB SCH ×2 (11:50→23:01)
[2016-12-28] MEDS: NICOTINE 7 MG/24 HOURS TOPICAL PATCH TD SCH (13:18)
--- NOTE | 2016-12-28 14:24 | PN ---
Progress Note (short form) - Note Progress Note: Subjective: The patient was seen and examined at the bedside, he states his left scrotum is draining now Current Medications Generic Name Dose Route Start Last Admin Trade Name Freq PRN Reason Stop Dose Admin Albuterol Sulfate 1 amp 12/27/16 11:18 Ventolin 0.083% Nebulizer Soln - NEB Q4H PRN ASTHMA Albuterol Sulfate 2 puff 12/27/16 11:18 Ventolin Hfa Inhaler - IH Q4H PRN ASTHMA Aspirin 81 mg 12/27/16 10:00 12/28/16 09:50 Ecotrin - PO 81 mg DAILY SHAYLA Administration Enoxaparin Sodium 40 mg 12/27/16 10:00 12/28/16 09:50 Lovenox - SQ 40 mg DAILY SHAYLA Administration Furosemide 80 mg 12/27/16 10:00 12/28/16 09:50 Lasix - PO 80 mg DAILY SHAYLA Administration Vancomycin HCl 250 mls @ 166.667 mls/hr 12/27/16 12:00 12/28/16 11:50 Vancomycin (Pre-Docked) IVPB 166.667 mls/hr Q12H SHAYLA Administration Piperacillin Sod/Tazobactam 100 mls @ 200 mls/hr 12/28/16 11:13 Sod 4.5 gm/ Dextrose IVPB Q6H-IV SHAYLA Protocol Insulin Aspart 1 vial 12/28/16 11:00 12/28/16 11:13 Novolog Vial Sliding Scale - SQ Not Given ACHS SHAYLA Protocol Lisinopril 40 mg 12/27/16 10:00 12/28/16 09:50 Prinivil PO 40 mg DAILY SHAYLA Administration Metformin HCl 500 mg 12/27/16 12:00 12/28/16 06:04 Glucophage - PO 500 mg BIDAC SHAYLA Administration Methadone HCl 80 mg/ Methadone 110 mg 12/27/16 06:45 12/28/16 06:04 HCl 30 mg PO 110 mg DAILY@0600 SHAYLA Administration Neomycin/Polymyxin/Bacitracin 1 applic 12/26/16 22:00 12/28/16 09:53 Neosporin Topical Ointment - TP 1 applic BID SHAYLA Administration Nicotine 7 mg 12/28/16 11:00 12/28/16 13:18 Nicoderm Patch - TD 7 mg DAILY SHAYLA Administration Oxycodone HCl 10 mg 12/27/16 11:42 12/28/16 09:52 Roxicodone - PO 10 mg Q4H PRN Administration PAIN Objective: Vital Signs Period Temp Pulse Resp BP Sys/Pinto Pulse Ox Last 24 Hr 97.7 F-98.5 F 44-82 16-18 128-157/75-87 95-95 Physical Exam: General: NAD Lungs: CTA bilaterally Heart: RRR, S1S2 Abd: Soft, non-tender. Normoactive bowel sounds : Left scrotum with abscess Skin: B/l axilla abscess, draining. Left axilla with sinus tract. Sacral region with abscess, draining Neuro: CN 2-12 intact CBCD WBC 8.9 K/mm3 (4.0-10.0) 12/28/16 05:35 RBC 4.17 M/mm3 (4.00-5.60) 12/28/16 05:35 Hgb 9.7 GM/dL (11.7-16.9) L 12/28/16 05:35 Hct 31.3 % (35.4-49) L 12/28/16 05:35 MCV 75.1 fl (80-96) L 12/28/16 05:35 MCHC 30.9 g/dl (32.0-35.9) L 12/28/16 05:35 RDW 16.8 % (11.9-15.9) H 12/28/16 05:35 Plt Count 206 K/MM3 (134-434) 12/28/16 05:35 MPV 7.9 fl (7.5-11.1) 12/28/16 05:35 CMP Sodium 140 mmol/L (136-145) 12/28/16 05:35 Potassium 4.2 mmol/L (3.5-5.1) 12/28/16 05:35 Chloride 98 mmol/L (98-107) 12/28/16 05:35 Carbon Dioxide 38 mmol/L (21-32) H 12/28/16 05:35 Anion Gap 4 (8-16) L 12/28/16 05:35 BUN 14 mg/dL (7-18) 12/28/16 05:35 Creatinine 0.8 mg/dL (0.7-1.3) 12/28/16 05:35 Creat Clearance w eGFR > 60 (>60) 12/28/16 05:35 Random Glucose 92 mg/dL (74-106) 12/28/16 05:35 Calcium 8.6 mg/dL (8.5-10.1) 12/28/16 05:35 Total Bilirubin 0.2 mg/dL (0.2-1.0) 12/28/16 05:35 AST 9 U/L (15-37) L D 12/28/16 05:35 ALT 13 U/L (12-78) 12/28/16 05:35 Alkaline Phosphatase 78 U/L (45-117) 12/28/16 05:35 Total Protein 6.9 g/dl (6.4-8.2) 12/28/16 05:35 Albumin 2.9 g/dl (3.4-5.0) L 12/28/16 05:35 Microbiology 12/26/16 13:42 Abscess Gram Stain - Final 12/26/16 13:42 Abscess Wound Culture - Preliminary Staphylococcus Coagulase Neg Staphylococcus Coagulase Neg#2 Diphtheroid/Corynebacterium 12/26/16 12:00 Blood - Peripheral Venous Blood Culture - Preliminary NO GROWTH OBTAINED AFTER 48 HOURS, INCUBATION TO CONTINUE FOR 3 DAYS. 12/26/16 12:00 Blood - Peripheral Venous Blood Culture - Preliminary NO GROWTH OBTAINED AFTER 48 HOURS, INCUBATION TO CONTINUE FOR 3 DAYS. Assessment: This is a 50 year old male with PMHx of morbid obesity, herniated lumbosacral spine disc, chronic back pain, IDDM, COPD, severe hidradenitis suppurativa with chronic tracts/abscess/scarring to axilla who presented to the ED with bloody drainage from left axilla and was admitted for further evaluation and management of his emergent condition. Plan: 1) ID: Left scrotal abscess, Hx of hidradentitis suppurativa - Scrotal ultrasound with abscess - Continue empiric vancomycin and zosyn - Patient refused HIV testing, stating he is negative - Appreciate urology consult - Appreciate ID consult 2) Pulmonary: COPD - Continue Albuterol nebs - O2 via NC prn - Stable 3) Endocrine: IDDM - Hgb A1c 6.1! - Patient is refusing ISS - Continue home Metformin - BGM ACHS 4) Cardiology: HTN - Continue lisinopril - Continue Norvasc 5) F/E/N: - Monitor electrolytes - Diabetic diet 6) Prophylaxis: - Lovenox 40mg sq daily - OOB ambulating 7) Dispo: - Requires continued inpatient care CODE STATUS: FULL CODE Visit type - Emergency Visit Emergency Visit: Yes ED Registration Date: 12/26/16 Care time: The patient presented to the Emergency Department on the above date and was hospitalized for further evaluation of their emergent condition. - New Patient This patient is new to me today: No - Critical Care Critical Care patient: No
[2016-12-28] MEDS: PIPERACILLIN/TAZOB 4.5 GM 4.5 GM in DEXTROSE 5%-WATER 100 ML IVPB SCH ×2 (15:26→21:19)
--- NOTE | 2016-12-28 16:26 | PN ---
Progress Note, Physician History of Present Illness: Reports drainage from L lateral scrotum Less pain No fever/ chills Afebrile; WBC normal BC (-) Wound c/s skin kendell - Current Medication List Current Medications: Active Medications Albuterol Sulfate (Ventolin 0.083% Nebulizer Soln -) 1 amp NEB Q4H PRN PRN Reason: ASTHMA Albuterol Sulfate (Ventolin Hfa Inhaler -) 2 puff IH Q4H PRN PRN Reason: ASTHMA Aspirin (Ecotrin -) 81 mg PO DAILY [facility] Last Admin: 12/28/16 09:50 Dose: 81 mg Enoxaparin Sodium (Lovenox -) 40 mg SQ DAILY [facility] Last Admin: 12/28/16 09:50 Dose: 40 mg Furosemide (Lasix -) 80 mg PO DAILY [facility] Last Admin: 12/28/16 09:50 Dose: 80 mg Vancomycin HCl (Vancomycin (Pre-Docked)) 250 mls @ 166.667 mls/hr IVPB Q12H [facility] Last Admin: 12/28/16 11:50 Dose: 166.667 mls/hr Piperacillin Sod/Tazobactam (Sod 4.5 gm/ Dextrose) 100 mls @ 200 mls/hr IVPB Q6H-IV SHAYLA PRN Reason: Protocol Last Admin: 12/28/16 15:26 Dose: 200 mls/hr Insulin Aspart (Novolog Vial Sliding Scale -) 1 vial SQ ACHS SHAYLA PRN Reason: Protocol Last Admin: 12/28/16 11:13 Dose: Not Given Lisinopril (Prinivil) 40 mg PO DAILY [facility] Last Admin: 12/28/16 09:50 Dose: 40 mg Metformin HCl (Glucophage -) 500 mg PO BIDAC [facility] Last Admin: 12/28/16 06:04 Dose: 500 mg Methadone HCl 80 mg/ Methadone (HCl 30 mg) 110 mg PO DAILY@0600 [facility] Last Admin: 12/28/16 06:04 Dose: 110 mg Neomycin/Polymyxin/Bacitracin (Neosporin Topical Ointment -) 1 applic TP BID [facility] Last Admin: 12/28/16 09:53 Dose: 1 applic Nicotine (Nicoderm Patch -) 7 mg TD DAILY [facility] Last Admin: 12/28/16 13:18 Dose: 7 mg Oxycodone HCl (Roxicodone -) 10 mg PO Q4H PRN PRN Reason: PAIN Last Admin: 12/28/16 09:52 Dose: 10 mg - Objective Vital Signs: Vital Signs Temperature 97.7 F 12/28/16 14:19 Pulse Rate 60 12/28/16 14:19 Respiratory Rate 18 12/28/16 14:19 Blood Pressure 153/80 12/28/16 14:19 O2 Sat by Pulse Oximetry (%) 95 12/28/16 09:00 Constitutional: Yes: No Distress Eyes: Yes: Conjunctiva Clear Cardiovascular: Yes: Regular Rate and Rhythm, S1, S2 Respiratory: Yes: CTA Bilaterally Gastrointestinal: Yes: Normal Bowel Sounds, Soft. No: Tenderness Genitourinary: Yes: Other (decreased L scrotal induration no erythema no expresible pus) Labs: CBC, BMP 12/28/16 05:35 12/28/16 05:35 Assessment/Plan L scrotal abscess Diabetes mellitus Hx Hydradenitis supprativa Continue empiric zosyn/vanco Warm soaks, analgesics ? po antibiotics am
[2016-12-28] MEDS ORDERED: METOCLOPRAMIDE HCL INJECTION 10 MG/2 ML VIAL IVPB ONE ×2 (16:31→21:25)
[2016-12-29] MEDS: PIPERACILLIN/TAZOB 4.5 GM 4.5 GM in DEXTROSE 5%-WATER 100 ML IVPB SCH ×2 (02:09→11:25)
[2016-12-29] MEDS: oxyCODONE HCL 5 MG TABLET PO PRN ×3 (03:52→17:43)
[2016-12-29] MEDS ORDERED: METHADONE HCL 40 MG DISPERSABLE TABLET ONE (06:13)
[2016-12-29] MEDS ORDERED: METHADONE HCL 10 MG TABLET ONE (06:13)
[2016-12-29] MEDS: INSULIN SLIDING SCALE (NOVOLOG) 1 VIAL SQ SCH ×4 (06:17→21:37)
[2016-12-29] MEDS: metFORMIN HCL 500 MG TABLET (FP) PO SCH ×2 (06:17→16:18)
[2016-12-29] MEDS: METHADONE 80 MG, METHADONE 30 MG PO SCH (06:17)
--- NOTE | 2016-12-29 09:26 | PN ---
Progress Note (short form) - Note Progress Note: Subjective: The patient was seen and examined at the bedside, he reports having diarrhea and vomiting today. Current Medications Generic Name Dose Route Start Last Admin Trade Name Freq PRN Reason Stop Dose Admin Albuterol Sulfate 1 amp 12/27/16 11:18 Ventolin 0.083% Nebulizer Soln - NEB Q4H PRN ASTHMA Albuterol Sulfate 2 puff 12/27/16 11:18 Ventolin Hfa Inhaler - IH Q4H PRN ASTHMA Aspirin 81 mg 12/27/16 10:00 12/28/16 09:50 Ecotrin - PO 81 mg DAILY SHAYLA Administration Enoxaparin Sodium 40 mg 12/27/16 10:00 12/28/16 09:50 Lovenox - SQ 40 mg DAILY SHAYLA Administration Furosemide 80 mg 12/27/16 10:00 12/28/16 09:50 Lasix - PO 80 mg DAILY SHAYLA Administration Vancomycin HCl 250 mls @ 166.667 mls/hr 12/27/16 12:00 12/28/16 23:01 Vancomycin (Pre-Docked) IVPB 166.667 mls/hr Q12H SHAYLA Administration Piperacillin Sod/Tazobactam 100 mls @ 200 mls/hr 12/28/16 11:13 12/29/16 02:09 Sod 4.5 gm/ Dextrose IVPB 200 mls/hr Q6H-IV SHAYLA Administration Protocol Insulin Aspart 1 vial 12/28/16 11:00 12/29/16 06:17 Novolog Vial Sliding Scale - SQ Not Given ACHS SHAYLA Protocol Lisinopril 40 mg 12/27/16 10:00 12/28/16 09:50 Prinivil PO 40 mg DAILY SHAYLA Administration Metformin HCl 500 mg 12/27/16 12:00 12/29/16 06:17 Glucophage - PO 500 mg BIDAC SHAYLA Administration Methadone HCl 80 mg/ Methadone 110 mg 12/27/16 06:45 12/29/16 06:17 HCl 30 mg PO 110 mg DAILY@0600 SHAYLA Administration Neomycin/Polymyxin/Bacitracin 1 applic 12/26/16 22:00 12/28/16 21:19 Neosporin Topical Ointment - TP 1 applic BID SHAYLA Administration Nicotine 7 mg 12/28/16 11:00 12/28/16 13:18 Nicoderm Patch - TD 7 mg DAILY SHAYLA Administration Oxycodone HCl 10 mg 12/27/16 11:42 12/29/16 03:52 Roxicodone - PO 10 mg Q4H PRN Administration PAIN Objective: Vital Signs Period Temp Pulse Resp BP Sys/Pinto Pulse Ox Last 24 Hr 97.7 F-98.5 F 57-66 18-20 153-173/80-95 95 Physical Exam: General: NAD Lungs: CTA bilaterally Heart: RRR, S1S2 Abd: Soft, non-tender. Normoactive bowel sounds : Left scrotum with abscess, draining Skin: B/l axilla abscess, draining. Left axilla with sinus tract. Sacral region with abscess Neuro: CN 2-12 intact CBCD WBC 8.9 K/mm3 (4.0-10.0) 12/28/16 05:35 RBC 4.17 M/mm3 (4.00-5.60) 12/28/16 05:35 Hgb 9.7 GM/dL (11.7-16.9) L 12/28/16 05:35 Hct 31.3 % (35.4-49) L 12/28/16 05:35 MCV 75.1 fl (80-96) L 12/28/16 05:35 MCHC 30.9 g/dl (32.0-35.9) L 12/28/16 05:35 RDW 16.8 % (11.9-15.9) H 12/28/16 05:35 Plt Count 206 K/MM3 (134-434) 12/28/16 05:35 MPV 7.9 fl (7.5-11.1) 12/28/16 05:35 CMP Sodium 140 mmol/L (136-145) 12/28/16 05:35 Potassium 4.2 mmol/L (3.5-5.1) 12/28/16 05:35 Chloride 98 mmol/L (98-107) 12/28/16 05:35 Carbon Dioxide 38 mmol/L (21-32) H 12/28/16 05:35 Anion Gap 4 (8-16) L 12/28/16 05:35 BUN 14 mg/dL (7-18) 12/28/16 05:35 Creatinine 0.8 mg/dL (0.7-1.3) 12/28/16 05:35 Creat Clearance w eGFR > 60 (>60) 12/28/16 05:35 Random Glucose 92 mg/dL (74-106) 12/28/16 05:35 Calcium 8.6 mg/dL (8.5-10.1) 12/28/16 05:35 Total Bilirubin 0.2 mg/dL (0.2-1.0) 12/28/16 05:35 AST 9 U/L (15-37) L D 12/28/16 05:35 ALT 13 U/L (12-78) 12/28/16 05:35 Alkaline Phosphatase 78 U/L (45-117) 12/28/16 05:35 Total Protein 6.9 g/dl (6.4-8.2) 12/28/16 05:35 Albumin 2.9 g/dl (3.4-5.0) L 12/28/16 05:35 Microbiology 12/26/16 13:42 Abscess Gram Stain - Final 12/26/16 13:42 Abscess Wound Culture - Final Staphylococcus Coagulase Neg Staphylococcus Coagulase Neg#2 Diphtheroid/Corynebacterium 12/26/16 12:00 Blood - Peripheral Venous Blood Culture - Preliminary NO GROWTH OBTAINED AFTER 48 HOURS, INCUBATION TO CONTINUE FOR 3 DAYS. 12/26/16 12:00 Blood - Peripheral Venous Blood Culture - Preliminary NO GROWTH OBTAINED AFTER 48 HOURS, INCUBATION TO CONTINUE FOR 3 DAYS. Assessment: This is a 50 year old male with PMHx of morbid obesity, herniated lumbosacral spine disc, chronic back pain, IDDM, COPD, severe hidradenitis suppurativa with chronic tracts/abscess/scarring to axilla who presented to the ED with bloody drainage from left axilla and was admitted for further evaluation and management of his emergent condition. Plan: 1) ID: Left scrotal abscess, Hx of hidradentitis suppurativa - Scrotal ultrasound with abscess - Continue empiric vancomycin and zosyn - Patient refused HIV testing, stating he is negative - Appreciate urology consult - Appreciate ID consult Diarrhea/vomiting - Likely 2/2 antibiotics, f/u id for further recommendations - Send C.diff - Antiemetics 2) Pulmonary: COPD - Continue Albuterol nebs - O2 via NC prn - Stable 3) Endocrine: IDDM - Hgb A1c 6.1 - Patient is refusing ISS - Continue home Metformin - BGM ACHS 4) Cardiology: HTN - Continue lisinopril - Norvasc added for htn 5) F/E/N: - Monitor electrolytes - Diabetic diet 6) Prophylaxis: - Lovenox 40mg sq daily - OOB ambulating 7) Dispo: - Discharge on hold today 2/2 vomiting and diarrhea CODE STATUS: FULL CODE
[2016-12-29] MEDS ORDERED: PT OWN MED DRAWER 7, Y5N ONE ×2 (09:59→10:18)
[2016-12-29] MEDS: ASPIRIN COATED 81 MG TABLET.EC PO SCH (10:06)
[2016-12-29] MEDS: FUROSEMIDE 40 MG TABLET (FP) PO SCH (10:06)
[2016-12-29] MEDS: LISINOPRIL 20 MG TABLET (FP) PO SCH (10:06)
[2016-12-29] MEDS: ENOXAPARIN NA (PORCINE) 40 MG/0.4 ML DISP.SYRIN SQ SCH (10:06)
[2016-12-29] MEDS: amLODIPine BESYLATE 5 MG TABLET (FP) PO SCH ×2 (10:06→10:14)
[2016-12-29] MEDS: NICOTINE 7 MG/24 HOURS TOPICAL PATCH TD SCH (10:08)
[2016-12-29] MEDS: NEOMYCIN/POLYMYXIN/BACITRACIN (TRIPLE ANTIBIOTIC) 28 GM OINTMENT TP SCH ×2 (10:08→21:37)
--- NOTE | 2016-12-29 11:41 | PN ---
Progress Note, Physician History of Present Illness: Reports nausea/ vomiting / diarrhea No c/o scrotal pain + drainge on dressing No fever/ chills Afebrile WBC WNL - Current Medication List Current Medications: Active Medications Albuterol Sulfate (Ventolin 0.083% Nebulizer Soln -) 1 amp NEB Q4H PRN PRN Reason: ASTHMA Albuterol Sulfate (Ventolin Hfa Inhaler -) 2 puff IH Q4H PRN PRN Reason: ASTHMA Amlodipine Besylate (Norvasc -) 5 mg PO DAILY [facility] Last Admin: 12/29/16 10:14 Dose: Not Given Aspirin (Ecotrin -) 81 mg PO DAILY [facility] Last Admin: 12/29/16 10:06 Dose: 81 mg Enoxaparin Sodium (Lovenox -) 40 mg SQ DAILY [facility] Last Admin: 12/29/16 10:06 Dose: 40 mg Furosemide (Lasix -) 80 mg PO DAILY [facility] Last Admin: 12/29/16 10:06 Dose: 80 mg Insulin Aspart (Novolog Vial Sliding Scale -) 1 vial SQ ACHS [facility] PRN Reason: Protocol Last Admin: 12/29/16 11:25 Dose: Not Given Lisinopril (Prinivil) 40 mg PO DAILY [facility] Last Admin: 12/29/16 10:06 Dose: 40 mg Metformin HCl (Glucophage -) 500 mg PO BIDAC [facility] Last Admin: 12/29/16 06:17 Dose: 500 mg Methadone HCl 80 mg/ Methadone (HCl 30 mg) 110 mg PO DAILY@0600 [facility] Last Admin: 12/29/16 06:17 Dose: 110 mg Neomycin/Polymyxin/Bacitracin (Neosporin Topical Ointment -) 1 applic TP BID [facility] Last Admin: 12/29/16 10:08 Dose: 1 applic Nicotine (Nicoderm Patch -) 7 mg TD DAILY [facility] Last Admin: 12/29/16 10:08 Dose: Not Given Oxycodone HCl (Roxicodone -) 10 mg PO Q4H PRN PRN Reason: PAIN Last Admin: 12/29/16 10:20 Dose: 10 mg - Objective Vital Signs: Vital Signs Temperature 98.2 F 12/29/16 08:49 Pulse Rate 64 12/29/16 08:49 Respiratory Rate 18 12/29/16 08:49 Blood Pressure 173/95 12/29/16 08:49 O2 Sat by Pulse Oximetry (%) 95 12/28/16 20:57 Constitutional: Yes: No Distress, Obese Eyes: Yes: Conjunctiva Clear Cardiovascular: Yes: Regular Rate and Rhythm Respiratory: Yes: CTA Bilaterally Gastrointestinal: Yes: Normal Bowel Sounds, Soft, Abdomen, Obese, Tenderness Genitourinary: Yes: Other (less L lateral scrotal induration No erythema/ drainage) Labs: CBC, BMP 12/28/16 05:35 12/28/16 05:35 Assessment/Plan L scrotal abscess Diabetes mellitus Hx Hydradenitis supprativa D/C IV antibiotics Substitute levaquin 750mg po daily x7d Outpatient follow up
[2016-12-29] MEDS: LEVOFLOXACIN 250 MG TABLET (FP) PO SCH (12:19)
--- NOTE | 2016-12-29 13:18 | DS ---
Physical Examination Vital Signs: Vital Signs Temperature 98.2 F 12/29/16 08:49 Pulse Rate 64 12/29/16 08:49 Respiratory Rate 18 12/29/16 08:49 Blood Pressure 173/95 12/29/16 08:49 O2 Sat by Pulse Oximetry (%) 95 12/29/16 09:00 Labs: CBC, BMP 12/28/16 05:35 12/28/16 05:35 Discharge Summary Reason For Visit: HINDRADENTIS SUPPURATIVA, STAPH INFECTION CHRONIC Current Active Problems Abscess of multiple sites (Acute) Cellulitis, scrotum (Acute) Chronic hypoxemic respiratory failure (Acute) Diabetes mellitus, insulin dependent (IDDM), uncontrolled (Acute) COPD (chronic obstructive pulmonary disease) (Chronic) Methadone maintenance therapy patient (Chronic) Hospital Course: Spoke to RN, patient refused Norvasc. BP prior to discharge 158/83. Instructed the patient to check BP at home and follow-up with pcp within 2-3 days or sooner if BP is elevated Condition: Improved - Instructions Diet, Activity, Other Instructions: Please return to the ED with new, persistent, or worsening symptoms. Please follow-up with providers as indicated. Referrals: Alex Franco MD [Staff Physician] - (Please follow-up with urology within 2-3 days for further management and evaluation of your scrotal abscess) Sonja Medina MD [Primary Care Provider] - 1 Week Fredy Irving MD [Staff Physician] - (Please follow-up with Dr. Irving in the wound care clinic within 2-3 days for further management of your wounds) Disposition: [facility]/HOME HEALTH CARE - Home Medications Comprehensive Discharge Medication List: Ambulatory Orders Albuterol 0.083% Nebulizer Silvia [Ventolin 0.083% Nebulizer Soln -] 1 neb NEB Q4H PRN 04/10/14 Albuterol Sulfate Inhaler - [Ventolin HFA Inhaler -] 2 inh PO Q4H PRN 04/10/14 Aspirin [Aspirin EC] 81 mg PO DAILY 04/10/14 Furosemide [Lasix -] 80 mg PO DAILY 04/10/14 Methadone [Dolophine -] 110 mg PO DAILY 04/10/14 Lisinopril [Prinivil] 40 mg PO DAILY 04/11/15 Metformin HCl [Glucophage -] 500 mg PO BID 12/26/16 Amlodipine Besylate [Norvasc -] 5 mg PO DAILY tablet 12/29/16 Levofloxacin [Levaquin -] 750 mg PO DAILY #7 tablet 12/29/16 Neomy Sulf/Bacitrac Zn/Poly [Neosporin Top Ointment -] 1 applic TP BID applic 12/29/16 Oxycodone HCl [Roxicodone -] 10 mg PO Q4H PRN #0 tablet MDD 40 12/29/16
[2016-12-29] MEDS ORDERED: ONDANSETRON 4 MG/2 ML VIAL IVPB ONE (14:08)
[2016-12-30] MEDS: oxyCODONE HCL 5 MG TABLET PO PRN ×2 (01:57→10:14)
[2016-12-30] MEDS ORDERED: METHADONE HCL 10 MG TABLET ONE (05:34)
[2016-12-30] MEDS ORDERED: METHADONE HCL 40 MG DISPERSABLE TABLET ONE (05:35)
[2016-12-30] MEDS: METHADONE 80 MG, METHADONE 30 MG PO SCH (05:50)
[2016-12-30] MEDS: INSULIN SLIDING SCALE (NOVOLOG) 1 VIAL SQ SCH ×2 (06:13→11:31)
[2016-12-30] MEDS: metFORMIN HCL 500 MG TABLET (FP) PO SCH (06:25)
[2016-12-30 07:12] LABS: BASOPHIL 0.3 % (0-2.0); EOSINOPHIL 0.6 % (0-4.5); MCH 23.2 pg (25.7-33.7); MCHC 30.3 g/dl (32.0-35.9); MEAN CELL VOLUME 76.3 fl (80-96); MEAN PLT VOLUME 8.4 fl (7.5-11.1); NEUTROPHILS 63.7 % (42.8-82.8); PLATELET COUNT 208 K/MM3 (134-434); WHITE BLOOD COUNT 9.4 K/mm3 (4.0-10.0)
--- NOTE | 2016-12-30 08:23 | PN ---
Progress Note (short form) - Note Progress Note: Subjective: The patient was seen and examined at the bedside, he reports vomiting has resolved. He states his diarrhea resolved yesterday afternoon, but has returned this morning. C.diff sent ABX switched to po Levaquin yesterday Current Medications Generic Name Dose Route Start Last Admin Trade Name Freq PRN Reason Stop Dose Admin Albuterol Sulfate 1 amp 12/27/16 11:18 Ventolin 0.083% Nebulizer Soln - NEB Q4H PRN ASTHMA Albuterol Sulfate 2 puff 12/27/16 11:18 Ventolin Hfa Inhaler - IH Q4H PRN ASTHMA Amlodipine Besylate 5 mg 12/29/16 10:00 12/29/16 10:14 Norvasc - PO Not Given DAILY SHAYLA Aspirin 81 mg 12/27/16 10:00 12/29/16 10:06 Ecotrin - PO 81 mg DAILY SHAYLA Administration Enoxaparin Sodium 40 mg 12/27/16 10:00 12/29/16 10:06 Lovenox - SQ 40 mg DAILY SHAYLA Administration Furosemide 80 mg 12/27/16 10:00 12/29/16 10:06 Lasix - PO 80 mg DAILY SHAYLA Administration Insulin Aspart 1 vial 12/28/16 11:00 12/30/16 06:13 Novolog Vial Sliding Scale - SQ Not Given ACHS [facility] Protocol Levofloxacin 750 mg 12/29/16 11:45 12/29/16 12:19 Levaquin - PO 750 mg DAILY SHAYLA Administration Lisinopril 40 mg 12/27/16 10:00 12/29/16 10:06 Prinivil PO 40 mg DAILY SHAYLA Administration Metformin HCl 500 mg 12/27/16 12:00 12/30/16 06:25 Glucophage - PO 500 mg BIDAC SHAYLA Administration Methadone HCl 80 mg/ Methadone 110 mg 12/27/16 06:45 12/30/16 05:50 HCl 30 mg PO 110 mg DAILY@0600 SHAYLA Administration Neomycin/Polymyxin/Bacitracin 1 applic 12/26/16 22:00 12/29/16 21:37 Neosporin Topical Ointment - TP 1 applic BID SHAYLA Administration Nicotine 7 mg 12/28/16 11:00 12/29/16 10:08 Nicoderm Patch - TD Not Given DAILY SHAYLA Oxycodone HCl 10 mg 12/27/16 11:42 12/30/16 01:57 Roxicodone - PO 10 mg Q4H PRN Administration PAIN Objective: Vital Signs Period Temp Pulse Resp BP Sys/Pinto Pulse Ox Last 24 Hr 97.7 F-98.3 F 61-66 18-18 140-173/74-95 95-96 Physical Exam: General: NAD Lungs: CTA bilaterally Heart: RRR, S1S2 Abd: Soft, non-tender. Normoactive bowel sounds : Left scrotum with abscess, draining Skin: B/l axilla abscess, draining. Left axilla with sinus tract. Sacral region with abscess Neuro: CN 2-12 intact CBCD WBC 9.4 K/mm3 (4.0-10.0) 12/30/16 06:00 RBC 4.35 M/mm3 (4.00-5.60) 12/30/16 06:00 Hgb 10.1 GM/dL (11.7-16.9) L 12/30/16 06:00 Hct 33.2 % (35.4-49) L 12/30/16 06:00 MCV 76.3 fl (80-96) L 12/30/16 06:00 MCHC 30.3 g/dl (32.0-35.9) L 12/30/16 06:00 RDW 17.0 % (11.9-15.9) H 12/30/16 06:00 Plt Count 208 K/MM3 (134-434) 12/30/16 06:00 MPV 8.4 fl (7.5-11.1) 12/30/16 06:00 CMP Sodium 140 mmol/L (136-145) 12/28/16 05:35 Potassium 4.2 mmol/L (3.5-5.1) 12/28/16 05:35 Chloride 98 mmol/L (98-107) 12/28/16 05:35 Carbon Dioxide 38 mmol/L (21-32) H 12/28/16 05:35 Anion Gap 4 (8-16) L 12/28/16 05:35 BUN 14 mg/dL (7-18) 12/28/16 05:35 Creatinine 0.8 mg/dL (0.7-1.3) 12/28/16 05:35 Creat Clearance w eGFR > 60 (>60) 12/28/16 05:35 Random Glucose 92 mg/dL (74-106) 12/28/16 05:35 Calcium 8.6 mg/dL (8.5-10.1) 12/28/16 05:35 Total Bilirubin 0.2 mg/dL (0.2-1.0) 12/28/16 05:35 AST 9 U/L (15-37) L D 12/28/16 05:35 ALT 13 U/L (12-78) 12/28/16 05:35 Alkaline Phosphatase 78 U/L (45-117) 12/28/16 05:35 Total Protein 6.9 g/dl (6.4-8.2) 12/28/16 05:35 Albumin 2.9 g/dl (3.4-5.0) L 12/28/16 05:35 Microbiology 12/26/16 12:00 Blood - Peripheral Venous Blood Culture - Preliminary NO GROWTH OBTAINED AFTER 72 HOURS, INCUBATION TO CONTINUE FOR 2 DAYS. 12/26/16 12:00 Blood - Peripheral Venous Blood Culture - Preliminary NO GROWTH OBTAINED AFTER 72 HOURS, INCUBATION TO CONTINUE FOR 2 DAYS. 12/26/16 13:42 Abscess Gram Stain - Final 12/26/16 13:42 Abscess Wound Culture - Final Staphylococcus Coagulase Neg Staphylococcus Coagulase Neg#2 Diphtheroid/Corynebacterium Assessment: This is a 50 year old male with PMHx of morbid obesity, herniated lumbosacral spine disc, chronic back pain, IDDM, COPD, severe hidradenitis suppurativa with chronic tracts/abscess/scarring to axilla who presented to the ED with bloody drainage from left axilla and was admitted for further evaluation and management of his emergent condition. Plan: 1) ID: Left scrotal abscess, Hx of hidradentitis suppurativa - Scrotal ultrasound with abscess - Abx switched to po yesterday - Appreciate urology consult - Appreciate ID consult Diarrhea - Likely 2/2 antibiotics, f/u id for further recommendations - Send C.diff Vomiting resolved 2) Pulmonary: COPD - Continue Albuterol nebs - O2 via NC prn - Stable 3) Endocrine: IDDM - Hgb A1c 6.1 - Patient is refusing ISS - Continue home Metformin - BGM ACHS 4) Cardiology: HTN - Continue lisinopril - Norvasc added for htn 5) F/E/N: - Monitor electrolytes - Diabetic diet 6) Prophylaxis: - Lovenox 40mg sq daily - OOB ambulating 7) Dispo: - Once c.diff returns CODE STATUS: FULL CODE Visit type - Emergency Visit Emergency Visit: Yes ED Registration Date: 12/26/16 Care time: The patient presented to the Emergency Department on the above date and was hospitalized for further evaluation of their emergent condition. - New Patient This patient is new to me today: No - Critical Care Critical Care patient: No
[2016-12-30] MEDS: LEVOFLOXACIN 250 MG TABLET (FP) PO SCH (10:02)
[2016-12-30] MEDS: ENOXAPARIN NA (PORCINE) 40 MG/0.4 ML DISP.SYRIN SQ SCH (10:02)
[2016-12-30] MEDS: amLODIPine BESYLATE 5 MG TABLET (FP) PO SCH (10:03)
[2016-12-30] MEDS: FUROSEMIDE 40 MG TABLET (FP) PO SCH (10:03)
[2016-12-30] MEDS: LISINOPRIL 20 MG TABLET (FP) PO SCH (10:03)
[2016-12-30] MEDS: ASPIRIN COATED 81 MG TABLET.EC PO SCH (10:03)
[2016-12-30] MEDS: NICOTINE 7 MG/24 HOURS TOPICAL PATCH TD SCH (10:08)
[2016-12-30] MEDS: NEOMYCIN/POLYMYXIN/BACITRACIN (TRIPLE ANTIBIOTIC) 28 GM OINTMENT TP SCH (10:08)
[2016-12-30] MEDS: metroNIDAZOLE 250 MG TABLET PO SCH ×2 (10:19→13:59)
[2016-12-30 15:00] VITALS: BP 159/84; PULSE 72; TEMP 98.2
--- NOTE | 2016-12-30 15:02 | DS ---
Physical Examination Vital Signs: Vital Signs Temperature 98.2 F 12/30/16 14:59 Pulse Rate 72 12/30/16 14:59 Respiratory Rate 20 12/30/16 14:59 Blood Pressure 159/84 12/30/16 14:59 O2 Sat by Pulse Oximetry (%) 96 12/30/16 09:00 Labs: CBC, BMP 12/30/16 06:00 12/28/16 05:35 Discharge Summary Reason For Visit: HINDRADENTIS SUPPURATIVA, STAPH INFECTION CHRONIC Current Active Problems Abscess of multiple sites (Acute) Cellulitis, scrotum (Acute) Chronic hypoxemic respiratory failure (Acute) Diabetes mellitus, insulin dependent (IDDM), uncontrolled (Acute) COPD (chronic obstructive pulmonary disease) (Chronic) Methadone maintenance therapy patient (Chronic) Condition: Improved - Instructions Diet, Activity, Other Instructions: Please return to the ED with new, persistent, or worsening symptoms. Please follow-up with providers as indicated. Please follow-up with urology and the wound care clinic for further management of your wounds and scrotal abscess Referrals: Alex Franco MD [Staff Physician] - (Please follow-up with urology within 2-3 days for further management and evaluation of your scrotal abscess) Fredy Irving MD [Staff Physician] - (Please follow-up with Dr. Irving in the wound care clinic within 2-3 days for further management of your wounds) Sonja Medina MD [Primary Care Provider] - 1 Week Disposition: VNS/HOME HEALTH CARE - Home Medications Comprehensive Discharge Medication List: Ambulatory Orders Albuterol 0.083% Nebulizer Silvia [Ventolin 0.083% Nebulizer Soln -] 1 neb NEB Q4H PRN 04/10/14 Albuterol Sulfate Inhaler - [Ventolin HFA Inhaler -] 2 inh PO Q4H PRN 04/10/14 Aspirin [Aspirin EC] 81 mg PO DAILY 04/10/14 Furosemide [Lasix -] 80 mg PO DAILY 04/10/14 Methadone [Dolophine -] 110 mg PO DAILY 04/10/14 Lisinopril [Prinivil] 40 mg PO DAILY 04/11/15 Metformin HCl [Glucophage -] 500 mg PO BID 12/26/16 Amlodipine Besylate [Norvasc -] 5 mg PO DAILY tablet 12/29/16 Levofloxacin [Levaquin -] 750 mg PO DAILY #7 tablet 12/29/16 Neomy Sulf/Bacitrac Zn/Poly [Neosporin Top Ointment -] 1 applic TP BID applic 12/29/16 Oxycodone HCl [Roxicodone -] 10 mg PO Q4H PRN #0 tablet MDD 40 12/29/16 Metronidazole [Flagyl -] 500 mg PO TID #29 tablet 12/30/16
== END 2016-12-30 15:42 | disposition home health service (06) | DRG 501 ==
LOC: JER 10:24 → UNDOADMIN 15:19 → JERBED 15:19 → J6S 18:29
PROVIDERS: ADMIT Internal Medicine; ATTEND Registered Nurse
DX: N49.2 Inflammatory disorders of scrotum (principal); B95.7 Other staphylococcus as the cause of diseases classified elsewhere; E11.9 Type 2 diabetes mellitus without complications; E78.5 Hyperlipidemia, unspecified; I10 Essential (primary) hypertension; J44.9 Chronic obstructive pulmonary disease, unspecified; Z99.81 Dependence on supplemental oxygen; L73.2 Hidradenitis suppurativa; E66.01 Morbid (severe) obesity due to excess calories; Z68.41 Body mass index [BMI] 40.0-44.9, adult; Z71.3 Dietary counseling and surveillance; Z87.898 Personal history of other specified conditions; M51.27 Other intervertebral disc displacement, lumbosacral region; R11.2 Nausea with vomiting, unspecified; K52.1 Toxic gastroenteritis and colitis; T36.95XA Adverse effect of unspecified systemic antibiotic, initial encounter
CPT/HCPCS: 36415; 76870-TC; 80053; 83036; 83605; 85025; 85027; 87040; 87070; 87205; 87324; 87449; 93005; 93010; 99282-25

== ENCOUNTER 2017-08-08 09:17 | Emergency (ER) | payer OTHER ==
[2017-08-08 09:25] VITALS: BP 183/83; PULSE 78; TEMP 98.1; BMI 43.9
--- NOTE | 2017-08-08 10:27 | PDOC ---
History of Present Illness - General Chief Complaint: Wound Stated Complaint: ABSCESS BOIL Time Seen by Provider: 08/08/17 10:04 - History of Present Illness Initial Comments: 08/08/17 10:28 52 y.o. male with a PMH of COPD (on 3 L NC @ home), IDDM, HTN, DLD and recurrent hidranetis suppurativa as well as morbid obesity who presents to our ED today c/o a concern that his chronic hidranetis ulcers might be infected. Patient denies any recent fevers/chills and does endorse some nausea without vomiting. Upon repeat exam patient expresses concern he might have the influenza virus as he has been feeling "queasy" without any fevers/chills, myalgias, cough or viral URI symptoms. Patient denies chest pain,palpitations, abdominal pain, diarrhea/constipation, recent travel or sick contacts. Allergy: Celecoxib, Naproxen Social: denies cigarettes, denies alcohol, denies recurrent drug use Past History - Past Medical History Allergies/Adverse Reactions: Allergies Allergy/AdvReac Type Severity Reaction Status Date / Time celecoxib [From Celebrex] AdvReac Severe Rectal Verified 08/08/17 09:20 bleeding & hemoptysis naproxen [From Naprosyn] AdvReac Verified 08/08/17 09:20 Home Medications: Ambulatory Orders Albuterol Sulfate Inhaler - [Ventolin HFA Inhaler -] 2 inh PO Q4H PRN 04/10/14 Aspirin [Aspirin EC] 81 mg PO DAILY 04/10/14 Furosemide [Lasix -] 80 mg PO DAILY 04/10/14 Methadone [Dolophine -] 110 mg PO DAILY 04/10/14 Lisinopril [Prinivil] 40 mg PO DAILY 04/11/15 metFORMIN HCL [Glucophage -] 500 mg PO BID 12/26/16 Chlorhexidine Gluconate [Hibiclens For Decolonization -] 1 applic TP DAILY #1 bottle 08/08/17 Oxycodone HCl/Acetaminophen [Percocet 10-325 mg Tablet] 1 each PO ASDIR PRN Asthma: Yes Cancer: No COPD: Yes Diabetes: Yes (on oral meds) HTN: Yes Hypercholesterolemia: Yes Seizures: No - Surgical History Neurologic Surgery: No - Family Disease History Family Disease History: Diabetes: Father, Heart Disease: Father - Immunization History Immunization Up to Date: No - Suicide/Smoking/Psychosocial Hx Smoking Status: Yes Smoking History: Former smoker Have you smoked in the past 12 months: No Number of Cigarettes Smoked Daily: 3 If you are a former smoker, when did you quit?: 2017 Information on smoking cessation initiated: No 'Breaking Loose' booklet given: 09/28/15 Hx Alcohol Use: No Drug/Substance Use Hx: No Substance Use Type: None Hx Substance Use Treatment: No Review of Systems - Review of Systems Constitutional: No: Chills, Fever HEENTM: No: Eye Pain, Blurred Vision Respiratory: No: Cough, Shortness of Breath Cardiac (ROS): No: Chest Pain, Irregular Heart Rate, Lightheadedness, Palpitations, Syncope ABD/GI: No: Constipated, Diarrhea : No: Burning, Dysuria Integumentary: Yes: Lesions Psychiatric: No: Anxiety, Depression *Physical Exam - Vital Signs Last Vital Signs Temp Pulse Resp BP Pulse Ox 98.1 F 78 16 183/83 97 08/08/17 09:21 08/08/17 09:21 08/08/17 09:21 08/08/17 09:21 08/08/17 09:21 - Physical Exam General Appearance: Yes: Nourished, Obese HEENT: positive: EOMI, SRINIVAS Neck: positive: Tender, Supple Respiratory/Chest: positive: Lungs Clear, Normal Breath Sounds Cardiovascular: positive: S1, S2 Gastrointestinal/Abdominal: positive: Normal Bowel Sounds, Protuberent. negative: Guarding, Tenderness, Hernia, Mass Integumentary: positive: Normal Color, Dry, Warm, Other (multiple healed hidradenitis supprativa ulcers in B/L axilla, dorsal scotral sac, back, addomen ; single L axillary ulcer, open without purulence/erythema/edema) Medical Decision Making - Medical Decision Making 08/08/17 20:34 52 y.o. male who presents with concern for infected hidranetis supprativa ulcers. On PE patient is hemodynamically stable, afebrile with multiple ulcers - one open ulcer in L axilla without any erythema or TTP or purulent discharge. Wound culture obtained. Case d/w with wound service - suggest Hibiclens, Silver Sulfadiazine and outpatient f/u with wound clinic -- patient was previously referred to wound clinic however did not make an appointment. Patient discharged home with return precautions and extensive counseling on importance of adhering to follow-up regimen including wound care evaluation. *DC/Admit/Observation/Transfer Diagnosis at time of Disposition: Hidradenitis suppurativa - Discharge Dispostion Disposition: HOME Condition at time of disposition: Good Admit: No - Prescriptions Prescriptions: Chlorhexidine Gluconate [Hibiclens For Decolonization -] 1 applic TP DAILY #1 bottle - Referrals Referrals: Fredy Irving MD [Staff Physician] - Sonja Medina MD [Primary Care Provider] - - Patient Instructions Printed Discharge Instructions: Hidradenitis Suppurativa Additional Instructions: Please make a follow-up appointment with wound care as previously referred - wound care can be contacted at [phone]. As per wound care, a prescriptions for a cleanser and a lotion have been called to your pharmacy. Return to the Emergency Department for any new/worsening/concerning symptoms. - Post Discharge Activity
[2017-08-08] MEDS ORDERED: SILVER SULFADIAZINE 1% TOP CREAM 50 GM JAR TP ONE ×2 (11:30→11:37)
== END 2017-08-08 11:45 | disposition home or self-care (01) ==
LOC: JER 09:17 → SUPCPDRO 09:17 → JER 11:45
DX: L73.2 Hidradenitis suppurativa (principal); E11.9 Type 2 diabetes mellitus without complications; Z79.84 Long term (current) use of oral hypoglycemic drugs; I10 Essential (primary) hypertension; J44.9 Chronic obstructive pulmonary disease, unspecified; Z99.81 Dependence on supplemental oxygen; E78.5 Hyperlipidemia, unspecified; E66.01 Morbid (severe) obesity due to excess calories; Z68.41 Body mass index [BMI] 40.0-44.9, adult; Z87.891 Personal history of nicotine dependence
CPT/HCPCS: 82962; 87070; 87186; 87205; 99281-25

== ENCOUNTER 2024-03-10 10:32 | Emergency (ER) | payer OTHER ==
[2024-03-10 10:51] VITALS: BMI 56.7
[2024-03-10 13:25] LABS: EOS % 0.6 % (0-4.5); HEMATOCRIT 24.3 % (35.4-49); HEMOGLOBIN 7.4 GM/dL (11.7-16.9); MCH 22.8 pg (25.7-33.7); MCHC 30.4 g/dl (32.0-35.9); MEAN CELL VOLUME 74.8 fl (80-96); MEAN PLT VOLUME 7.8 fl (7.5-11.1); MONO % 3.9 % (3.8-10.2); NEUT % 75.5 % (42.8-82.8); PLATELET COUNT 294 10^3/uL (134-434); RBC 3.25 M/mm3 (4.00-5.60); WHITE BLOOD COUNT 10.9 K/mm3 (4.0-10.0)
[2024-03-10 13:53] LABS: POTASSIUM 3.9 mmol/L (3.5-5.1)
[2024-03-10 13:54] LABS: CALCIUM 8.9 mg/dL (8.5-10.1)
[2024-03-10 13:55] LABS: ALBUMIN 2.7 g/dl (3.4-5.0); BLOOD UREA NITROGEN 25.6 mg/dL (7-18)
[2024-03-10 13:58] LABS: CREATININE 1.6 mg/dL (0.55-1.3)
[2024-03-10 14:00] LABS: BILIRUBIN,TOTAL 0.2 mg/dL (0.2-1); TOT PROT 7.2 g/dl (6.4-8.2)
[2024-03-10] MEDS ORDERED: VANCOMYCIN 1 GRAM (PRE-DOCKED) 1,000 MG/250 ML BAG IVPB ONE (14:28)
[2024-03-10] MEDS ORDERED: PIPERACILLIN/TAZOB 3.375 GM 3.375 GM/50 ML BAG IVPB ONE (14:28)
[2024-03-10] MEDS: PIPERACILLIN/TAZOB 3.375 GM 3.375 GM in DEXTROSE 5%-WATER - 50 ML IVPB ONE (14:30)
[2024-03-10] MEDS: SODIUM CHLORIDE 0.9% 500 ML INFUS.BAG IV ONE (14:30)
[2024-03-10 15:13] VITALS: BP 145/75; PULSE 75; RESP 17; TEMP 98.7
[2024-03-10 15:13] LABS: ERYTHROCYTE SEDIMENTATION RATE 123 mm/hr (0-20)
[2024-03-10] MEDS: ACETAMINOPHEN 1000 MG/100 ML BAG IVPB ONE (15:42)
[2024-03-10] MEDS: VANCOMYCIN 1,000 MG in DEXTROSE 5%-WATER - 250 ML IVPB ONE (15:42)
[2024-03-10] MEDS: SODIUM CHLORIDE 0.9% 1000 ML INFUS.BAG IV ONE (18:38)
[2024-03-10] MEDS ORDERED: MUPIROCIN 2% TOPICAL OINTMENT 22 GM TUBE TP SCH (22:00)
== END 2024-03-10 18:50 | disposition left against medical advice (07) ==
LOC: JER 10:32
DX: N49.2 Inflammatory disorders of scrotum (principal)
CPT/HCPCS: 36415; 80053; 85025; 85651; 86140; 87070; 87076; 87186; 87205; 93005; 93010; 99285-25

== ENCOUNTER 2024-03-17 08:15 | Inpatient (IN) | payer OTHER ==
[2024-03-17 08:21] VITALS: BMI 44.3
[2024-03-17 10:16] LABS: BASO % 0.4 % (0-2.0); EOS % 0.5 % (0-4.5); HEMOGLOBIN 7.3 GM/dL (11.7-16.9); LYMPH % 17.4 % (8-40); MCH 22.7 pg (25.7-33.7); MCHC 30.3 g/dl (32.0-35.9); MEAN CELL VOLUME 74.9 fl (80-96); MEAN PLT VOLUME 7.4 fl (7.5-11.1); MONO % 4.9 % (3.8-10.2); NEUT % 76.8 % (42.8-82.8); PLATELET COUNT 293 10^3/uL (134-434); RBC 3.21 M/mm3 (4.00-5.60); RDW 18.7 % (11.9-15.9); WHITE BLOOD COUNT 10.3 K/mm3 (4.0-10.0)
[2024-03-17 10:25] LABS: INR 1.12 (0.83-1.09); PROTHROMBIN TIME (PATIENT) 12.6 SEC (9.7-13.0)
[2024-03-17 10:28] LABS: ACTIVATED PTT 35.9 SECONDS (25.2-36.5)
[2024-03-17 10:57] LABS: ERYTHROCYTE SEDIMENTATION RATE 119 mm/hr (0-20)
[2024-03-17 11:17] LABS: POTASSIUM 4.3 mmol/L (3.5-5.1)
[2024-03-17 11:19] LABS: ALBUMIN 2.7 g/dl (3.4-5.0); BLOOD UREA NITROGEN 24.5 mg/dL (7-18)
[2024-03-17 11:22] LABS: CREATININE 1.7 mg/dL (0.55-1.3)
[2024-03-17 11:24] LABS: BILIRUBIN,TOTAL 0.2 mg/dL (0.2-1)
[2024-03-17] MEDS ORDERED: VANCOMYCIN 1 GRAM (PRE-DOCKED) 1,000 MG/250 ML BAG IVPB ONE (11:29)
[2024-03-17 11:37] LABS: EPI CELLS 4 /uL (0-25.1); HYALINE CASTS 0 /uL (0-3.1); URINE APPEARANCE CLEAR; URINE BACTERIA 2 /uL (0-1359); URINE BILIRUBIN NEGATIVE (NEGATIVE); URINE COLOR YELLOW; URINE GLUCOSE (UA) NEGATIVE (NEGATIVE); URINE KETONE NEGATIVE (NEGATIVE); URINE LEUK ESTERASE NEGATIVE (NEGATIVE); URINE NITRITE NEGATIVE (NEGATIVE); URINE PROTEIN 3+ (NEGATIVE); URINE RBC 191 /uL (0-23.9); URINE UROBILINOGEN 0.2 mg/dL (0.2-1.0); URINE WBC 8 /uL (0-25.8)
[2024-03-17] MEDS: VANCOMYCIN 1,000 MG in DEXTROSE 5%-WATER - 250 ML IVPB ONE (11:54)
[2024-03-17 12:08] LABS: CALCIUM 8.9 mg/dL (8.5-10.1)
[2024-03-17] MEDS ORDERED: CEFEPIME 1 GM/100 ML BAG IVPB ONE (13:21)
[2024-03-17] MEDS: CEFEPIME HCL 1 GM VIAL (RESTRICTED TO ID) IVPB ONE (13:25)
[2024-03-17] MEDS: ACETAMINOPHEN 1000 MG/100 ML BAG IVPB ONE (14:14)
[2024-03-17] MEDS ORDERED: ACETAMINOPHEN 1000 MG/100 ML BAG IVPB PRN (16:33)
[2024-03-17] MEDS ORDERED: LACTATED RINGERS SOLUTION 1,000 ML/1,000 ML INFUS.BAG IV SCH (16:45)
[2024-03-17] MEDS ORDERED: MORPHINE SULFATE 2 MG/ML SYRINGE ONE (17:37)
[2024-03-17] MEDS: morphine SULFATE 4 MG/ML VIAL IVPUSH PRN (17:49)
[2024-03-17] MEDS ORDERED: PIPERACILLIN/TAZOB 4.5 GM 4.5 GM/100 ML BAG IVPB ONE (18:31)
[2024-03-17] MEDS: PIPERACILLIN/TAZOB 4.5 GM 4.5 GM in DEXTROSE 5%-WATER 100 ML IVPB SCH (19:00)
[2024-03-18] MEDS: hydrALAZINE HCL 50 MG TABLET (FP) PO ONE (01:46)
[2024-03-18] MEDS: INSULIN ASPART SLIDING SCALE (NOVOLOG) 1 VIAL SQ SCH (06:50)
[2024-03-18 07:50] VITALS: RESP 18
[2024-03-18 08:58] LABS: BASO % 0.3 % (0-2.0); HEMOGLOBIN 7.1 GM/dL (11.7-16.9); LYMPH % 22.2 % (8-40); MCH 22.9 pg (25.7-33.7); MEAN CELL VOLUME 73.8 fl (80-96); MEAN PLT VOLUME 7.9 fl (7.5-11.1); MONO % 6.6 % (3.8-10.2); NEUT % 69.9 % (42.8-82.8); PLATELET COUNT 264 10^3/uL (134-434); RBC 3.11 M/mm3 (4.00-5.60); RDW 17.8 % (11.9-15.9)
[2024-03-18 09:46] LABS: BLOOD UREA NITROGEN 27.2 mg/dL (7-18); CALCIUM 8.5 mg/dL (8.5-10.1)
[2024-03-18 09:49] LABS: CREATININE 1.8 mg/dL (0.55-1.3)
[2024-03-18] MEDS: ASPIRIN COATED 81 MG TABLET.EC PO SCH (10:38)
[2024-03-18] MEDS: SODIUM CHLORIDE 1,000 ML IV SCH ×2 (10:38→16:41)
[2024-03-18] MEDS ORDERED: methaDONE HCL 40 MG DISPERSABLE TABLET PO SCH (10:45)
[2024-03-18] MEDS: hydrALAZINE HCL 25 MG TABLET (FP) PO SCH (13:31)
[2024-03-18] MEDS: IRON SUCROSE INJECTION 200 MG in SODIUM CHLORIDE 100 ML IVPB ONE (13:36)
[2024-03-18] MEDS ORDERED: ALBUTEROL SO4 2.5/IPRATROPIUM 0.5 INH SOL 3 ML VIAL.NEB. NEB PRN (15:01)
[2024-03-18] MEDS ORDERED: SENNOSIDES/DOCUSATE COMBO (SENNA PLUS) TABLET (UD) PO PRN (15:01)
[2024-03-18 17:24] LABS: HEMATOCRIT 23.2 % (35.4-49); HEMOGLOBIN 7.1 GM/dL (11.7-16.9); MCH 22.5 pg (25.7-33.7); MCHC 30.4 g/dl (32.0-35.9); MEAN PLT VOLUME 6.8 fl (7.5-11.1); PLATELET COUNT 251 10^3/uL (134-434); RBC 3.13 M/mm3 (4.00-5.60); RDW 18.4 % (11.9-15.9); WHITE BLOOD COUNT 8.7 K/mm3 (4.0-10.0)
[2024-03-18] MEDS: PIPERACILLIN/TAZOB 4.5 GM 4.5 GM in DEXTROSE 5%-WATER 100 ML IVPB SCH ×2 (18:18→20:40)
[2024-03-19 10:03] LABS: BASO % 0.3 % (0-2.0); EOS % 0.5 % (0-4.5); HEMATOCRIT 24.1 % (35.4-49); HEMOGLOBIN 7.3 GM/dL (11.7-16.9); LYMPH % 23.1 % (8-40); MCH 22.8 pg (25.7-33.7); MCHC 30.2 g/dl (32.0-35.9); MEAN CELL VOLUME 75.3 fl (80-96); MEAN PLT VOLUME 7.4 fl (7.5-11.1); MONO % 4.5 % (3.8-10.2); NEUT % 71.6 % (42.8-82.8); PLATELET COUNT 258 10^3/uL (134-434); RDW 18.3 % (11.9-15.9)
[2024-03-19 10:23] LABS: POTASSIUM 4.1 mmol/L (3.5-5.1)
[2024-03-19 10:34] LABS: ALBUMIN 2.6 g/dl (3.4-5.0); BLOOD UREA NITROGEN 25.5 mg/dL (7-18)
[2024-03-19 10:37] LABS: CREATININE 1.7 mg/dL (0.55-1.3)
[2024-03-19 10:39] LABS: BILIRUBIN,TOTAL 0.3 mg/dL (0.2-1); TOT PROT 6.6 g/dl (6.4-8.2)
[2024-03-19] MEDS: IRON SUCROSE INJECTION 200 MG in SODIUM CHLORIDE 100 ML IVPB ONE (12:40)
[2024-03-20 09:18] LABS: BASO % 0.4 % (0-2.0); EOS % 0.7 % (0-4.5); HEMATOCRIT 22.8 % (35.4-49); LYMPH % 24.5 % (8-40); MCH 22.8 pg (25.7-33.7); MCHC 30.6 g/dl (32.0-35.9); MEAN CELL VOLUME 74.8 fl (80-96); MEAN PLT VOLUME 7.4 fl (7.5-11.1); MONO % 6.6 % (3.8-10.2); NEUT % 67.8 % (42.8-82.8); PLATELET COUNT 255 10^3/uL (134-434); RBC 3.05 M/mm3 (4.00-5.60); RDW 18.1 % (11.9-15.9); WHITE BLOOD COUNT 9.7 K/mm3 (4.0-10.0)
[2024-03-20 09:30] LABS: POTASSIUM 3.9 mmol/L (3.5-5.1)
[2024-03-20 09:33] LABS: BLOOD UREA NITROGEN 22.7 mg/dL (7-18); CALCIUM 8.4 mg/dL (8.5-10.1)
[2024-03-20 09:37] LABS: CREATININE 1.7 mg/dL (0.55-1.3)
[2024-03-20] MEDS: IRON SUCROSE INJECTION 200 MG in SODIUM CHLORIDE 100 ML IVPB ONE (12:05)
[2024-03-20 20:48] LABS: BASO % 0.4 % (0-2.0); EOS % 0.6 % (0-4.5); HEMATOCRIT 25.7 % (35.4-49); HEMOGLOBIN 7.8 GM/dL (11.7-16.9); LYMPH % 24.7 % (8-40); MCH 22.5 pg (25.7-33.7); MCHC 30.4 g/dl (32.0-35.9); MEAN CELL VOLUME 74.1 fl (80-96); MEAN PLT VOLUME 7.7 fl (7.5-11.1); MONO % 5.8 % (3.8-10.2); NEUT % 68.5 % (42.8-82.8); PLATELET COUNT 298 10^3/uL (134-434); RBC 3.47 M/mm3 (4.00-5.60); RDW 18.6 % (11.9-15.9); WHITE BLOOD COUNT 11.6 K/mm3 (4.0-10.0)
[2024-03-21] MEDS: amLODIPine BESYLATE 5 MG TABLET (FP) PO SCH (09:49)
[2024-03-21] MEDS ORDERED: amLODIPine BESYLATE 5 MG TABLET (FP) PO SCH (10:00)
[2024-03-21] MEDS: oxyCODONE HCL 5 MG TABLET PO ONE (12:21)
[2024-03-21] MEDS: hydrALAZINE HCL 25 MG TABLET (FP) PO SCH (13:02)
[2024-03-21 14:29] VITALS: PULSE 71; TEMP 98.4
[2024-03-21 16:04] VITALS: BP 170/77
[2024-03-23 21:09] LABS: ANTIGLOMERULAR BASEMENT MEN.AB <0.2 units (0.0-0.9); C-ANCA <1:20 titer (Neg:<1:20)
== END 2024-03-21 16:50 | disposition home or self-care (01) | DRG 385 ==
LOC: JER 08:15 → JERBED 15:57 → J7W 19:49 → J8W 03-18 00:15
PROVIDERS: ADMIT Internal Medicine; ATTEND Nurse Practitioner Family
DX: L73.2 Hidradenitis suppurativa (principal); N49.2 Inflammatory disorders of scrotum; N50.89 Other specified disorders of the male genital organs; L98.422 Non-pressure chronic ulcer of back with fat layer exposed; E66.01 Morbid (severe) obesity due to excess calories; Z68.41 Body mass index [BMI] 40.0-44.9, adult; F11.20 Opioid dependence, uncomplicated; J96.11 Chronic respiratory failure with hypoxia; E78.5 Hyperlipidemia, unspecified; J44.9 Chronic obstructive pulmonary disease, unspecified; M54.50 Low back pain, unspecified; N43.2 Other hydrocele; I13.0 Hypertensive heart and chronic kidney disease with heart failure and stage 1 through stage 4 chronic kidney disease, or unspecified chronic kidney disease; E11.22 Type 2 diabetes mellitus with diabetic chronic kidney disease; N18.9 Chronic kidney disease, unspecified; I50.9 Heart failure, unspecified
CPT/HCPCS: 36415; 76775-TC; 76870-TC; 80048; 80053; 81003; 82728; 82962; 83036; 83516; 83520; 83540; 83550; 84155; 84165; 85025; 85027; 85610; 85651; 85730; 86038; 86140; 86160; 86225; 86256; 86850; 86900; 86901; 87040; 87086; 93005; 93010; 94010; 99285-25; J1756

== ENCOUNTER 2024-05-14 16:21 | Inpatient (IN) | payer OTHER ==
[2024-05-14] MEDS ORDERED: morphine SULFATE 4 MG/ML VIAL ONE ×2 (17:24→19:03)
[2024-05-14] MEDS: morphine CARPU-JECT 4 MG/1 ML DISP.SYRIN IVPUSH ONE ×2 (17:34→19:06)
[2024-05-14 17:46] LABS: BASO % 0.9 % (0-2.0); EOS % 0.6 % (0-4.5); HEMATOCRIT 25.3 % (35.4-49); HEMOGLOBIN 7.6 GM/dL (11.7-16.9); LYMPH % 20.3 % (8-40); MCH 22.9 pg (25.7-33.7); MCHC 30.1 g/dl (32.0-35.9); MEAN PLT VOLUME 7.5 fl (7.5-11.1); MONO % 5.8 % (3.8-10.2); NEUT % 72.4 % (42.8-82.8); PLATELET COUNT 233 10^3/uL (134-434); RBC 3.34 M/mm3 (4.00-5.60); WHITE BLOOD COUNT 8.8 K/mm3 (4.0-10.0)
[2024-05-14] MEDS ORDERED: PIPERACILLIN/TAZOB 4.5 GM 4.5 GM/100 ML BAG IVPB ONE (17:46)
[2024-05-14 17:53] LABS: INR 1.04 (0.83-1.09); PROTHROMBIN TIME (PATIENT) 11.9 SEC (9.7-13.0)
[2024-05-14] MEDS: PIPERACILLIN/TAZOB 4.5 GM 4.5 GM in DEXTROSE 5%-WATER 100 ML IVPB ONE (17:53)
[2024-05-14 17:55] LABS: ACTIVATED PTT 35.6 SECONDS (25.2-36.5)
[2024-05-14 18:23] LABS: ERYTHROCYTE SEDIMENTATION RATE 116 mm/hr (0-20)
[2024-05-14 18:30] LABS: POTASSIUM 4.3 mmol/L (3.5-5.1)
[2024-05-14 18:32] LABS: CALCIUM 8.5 mg/dL (8.5-10.1)
[2024-05-14 18:33] LABS: ALBUMIN 2.7 g/dl (3.4-5.0); BLOOD UREA NITROGEN 36.2 mg/dL (7-18)
[2024-05-14 18:36] LABS: CREATININE 2.3 mg/dL (0.55-1.3)
[2024-05-14 18:37] LABS: BILIRUBIN,TOTAL 0.3 mg/dL (0.2-1)
[2024-05-14 18:38] LABS: TOT PROT 6.8 g/dl (6.4-8.2)
[2024-05-14] MEDS: VANCOMYCIN PREMIX 1.75 GM 1,750 MG/350 ML PIGGYBACK IVPB ONE (18:51)
[2024-05-14] MEDS: SODIUM CHLORIDE 0.9% 1000 ML INFUS.BAG IV ONE (20:55)
[2024-05-15 01:25] VITALS: BMI 39.6
[2024-05-15] MEDS ORDERED: ALBUTEROL SO4 HFA INHALER IH PRN (06:14)
[2024-05-15] MEDS: SODIUM CHLORIDE 1,000 ML IV SCH (06:54)
[2024-05-15] MEDS: PIPERACILLIN/TAZOB 3.375 GM 50 ML IVPB SCH ×2 (06:55→22:22)
[2024-05-15] MEDS: HEPARIN NA (PORCINE) 5,000 UNITS/ML 1ML VIAL SQ SCH (06:55)
[2024-05-15] MEDS: INSULIN ASPART SLIDING SCALE (NOVOLOG) 1 VIAL SQ SCH (07:02)
[2024-05-15 08:36] LABS: BASO % 0.4 % (0-2.0); EOS % 1.2 % (0-4.5); HEMOGLOBIN 7.6 GM/dL (11.7-16.9); LYMPH % 23.1 % (8-40); MCH 23.1 pg (25.7-33.7); MCHC 30.2 g/dl (32.0-35.9); MEAN CELL VOLUME 76.4 fl (80-96); MEAN PLT VOLUME 7.6 fl (7.5-11.1); MONO % 6.6 % (3.8-10.2); NEUT % 68.7 % (42.8-82.8); PLATELET COUNT 228 10^3/uL (134-434); RBC 3.27 M/mm3 (4.00-5.60); RDW 18.5 % (11.9-15.9); WHITE BLOOD COUNT 8.4 K/mm3 (4.0-10.0)
[2024-05-15 08:58] LABS: POTASSIUM 4.3 mmol/L (3.5-5.1)
[2024-05-15 09:00] LABS: CALCIUM 8.5 mg/dL (8.5-10.1)
[2024-05-15] MEDS ORDERED: methaDONE HCL 40 MG DISPERSABLE TABLET PO ONE (09:00)
[2024-05-15 09:01] LABS: ALBUMIN 2.7 g/dl (3.4-5.0); BLOOD UREA NITROGEN 33.5 mg/dL (7-18)
[2024-05-15 09:04] LABS: CREATININE 2.2 mg/dL (0.55-1.3); PHOSPHOROUS 4.1 mg/dL (2.5-4.9)
[2024-05-15 09:05] LABS: TOT PROT 6.8 g/dl (6.4-8.2)
[2024-05-15 09:09] LABS: BILIRUBIN,TOTAL 0.6 mg/dL (0.2-1)
[2024-05-15] MEDS: amLODIPine BESYLATE 10 MG TABLET (FP) PO SCH (10:21)
[2024-05-15] MEDS: oxyCODONE HCL 5 MG TABLET PO PRN (10:56)
[2024-05-15] MEDS: CHLORHEXIDINE GLUCONATE 4% CLEANSER FOR DECOLONIZATION TP SCH (14:10)
[2024-05-15] MEDS: FUROSEMIDE 20 MG TABLET (FP) PO SCH (14:49)
[2024-05-15] MEDS: IRON SUCROSE INJECTION 100 MG in SODIUM CHLORIDE 95 ML IVPB ONE (15:30)
[2024-05-15] MEDS: VANCOMYCIN PREMIX 1.5 GM 1,500 MG/300 ML BAG IVPB SCH (18:00)
[2024-05-15] MEDS: ACETAMINOPHEN 1000 MG/100 ML BAG IVPB PRN (20:57)
[2024-05-15] MEDS: VANCOMYCIN HCL 1,500 MG in DEXTROSE 5%-WATER - 500 ML IVPB SCH (21:47)
[2024-05-16] MEDS ORDERED: PIPERACILLIN/TAZOB 3.375 GM 50 ML IVPB SCH (03:00)
[2024-05-16 07:49] LABS: BASO % 0.4 % (0-2.0); EOS % 1.3 % (0-4.5); HEMATOCRIT 25.2 % (35.4-49); HEMOGLOBIN 7.7 GM/dL (11.7-16.9); LYMPH % 26.5 % (8-40); MCH 23.3 pg (25.7-33.7); MCHC 30.7 g/dl (32.0-35.9); MEAN PLT VOLUME 7.8 fl (7.5-11.1); MONO % 7.8 % (3.8-10.2); PLATELET COUNT 216 10^3/uL (134-434); RBC 3.31 M/mm3 (4.00-5.60); RDW 18.5 % (11.9-15.9); WHITE BLOOD COUNT 7.1 K/mm3 (4.0-10.0)
[2024-05-16 08:07] LABS: POTASSIUM 3.9 mmol/L (3.5-5.1)
[2024-05-16 08:09] LABS: ALBUMIN 2.6 g/dl (3.4-5.0); BLOOD UREA NITROGEN 29.7 mg/dL (7-18); CALCIUM 8.5 mg/dL (8.5-10.1); MAGNESIUM 1.9 mg/dL (1.8-2.4)
[2024-05-16 08:13] LABS: CREATININE 1.9 mg/dL (0.55-1.3)
[2024-05-16 08:14] LABS: BILIRUBIN,TOTAL 0.2 mg/dL (0.2-1); TOT PROT 6.3 g/dl (6.4-8.2)
[2024-05-16] MEDS ORDERED: methaDONE HCL 40 MG DISPERSABLE TABLET PO SCH (10:00)
[2024-05-17 08:18] LABS: BASO % 0.3 % (0-2.0); EOS % 0.9 % (0-4.5); HEMATOCRIT 25.5 % (35.4-49); HEMOGLOBIN 7.7 GM/dL (11.7-16.9); LYMPH % 29.6 % (8-40); MCH 22.8 pg (25.7-33.7); MCHC 30.1 g/dl (32.0-35.9); MEAN CELL VOLUME 75.5 fl (80-96); MEAN PLT VOLUME 7.5 fl (7.5-11.1); MONO % 6.5 % (3.8-10.2); NEUT % 62.7 % (42.8-82.8); PLATELET COUNT 243 10^3/uL (134-434); RBC 3.37 M/mm3 (4.00-5.60); RDW 18.5 % (11.9-15.9); WHITE BLOOD COUNT 8.4 K/mm3 (4.0-10.0)
[2024-05-17 08:32] LABS: POTASSIUM 4.1 mmol/L (3.5-5.1)
[2024-05-17 08:39] LABS: ALBUMIN 2.8 g/dl (3.4-5.0); CALCIUM 9.1 mg/dL (8.5-10.1)
[2024-05-17 08:40] LABS: BLOOD UREA NITROGEN 30.7 mg/dL (7-18); MAGNESIUM 2.1 mg/dL (1.8-2.4)
[2024-05-17 08:43] LABS: CREATININE 1.9 mg/dL (0.55-1.3)
[2024-05-17 08:44] LABS: BILIRUBIN,TOTAL 0.2 mg/dL (0.2-1)
[2024-05-17] MEDS: IRON SUCROSE INJECTION 200 MG in SODIUM CHLORIDE 100 ML IVPB ONE (11:12)
[2024-05-18 08:58] LABS: BASO % 0.3 % (0-2.0); HEMATOCRIT 25.2 % (35.4-49); HEMOGLOBIN 7.7 GM/dL (11.7-16.9); LYMPH % 29.1 % (8-40); MCH 23.3 pg (25.7-33.7); MCHC 30.6 g/dl (32.0-35.9); MEAN CELL VOLUME 76.1 fl (80-96); MEAN PLT VOLUME 7.8 fl (7.5-11.1); MONO % 6.7 % (3.8-10.2); NEUT % 62.9 % (42.8-82.8); PLATELET COUNT 243 10^3/uL (134-434); RBC 3.31 M/mm3 (4.00-5.60); RDW 18.4 % (11.9-15.9); WHITE BLOOD COUNT 8.5 K/mm3 (4.0-10.0)
[2024-05-18 09:27] LABS: ALBUMIN 2.8 g/dl (3.4-5.0)
[2024-05-18 09:28] LABS: CALCIUM 8.8 mg/dL (8.5-10.1); MAGNESIUM 2.1 mg/dL (1.8-2.4)
[2024-05-18 09:30] LABS: CREATININE 1.8 mg/dL (0.55-1.3)
[2024-05-18 09:32] LABS: TOT PROT 6.9 g/dl (6.4-8.2)
[2024-05-18 09:33] LABS: BILIRUBIN,TOTAL 0.2 mg/dL (0.2-1)
[2024-05-19 07:35] LABS: BASO % 0.4 % (0-2.0); EOS % 0.7 % (0-4.5); HEMATOCRIT 25.8 % (35.4-49); HEMOGLOBIN 7.9 GM/dL (11.7-16.9); LYMPH % 22.8 % (8-40); MCHC 30.4 g/dl (32.0-35.9); MEAN CELL VOLUME 75.6 fl (80-96); MEAN PLT VOLUME 7.5 fl (7.5-11.1); MONO % 6.4 % (3.8-10.2); NEUT % 69.7 % (42.8-82.8); PLATELET COUNT 256 10^3/uL (134-434); RBC 3.41 M/mm3 (4.00-5.60); RDW 18.2 % (11.9-15.9); WHITE BLOOD COUNT 10.3 K/mm3 (4.0-10.0)
[2024-05-19 07:41] LABS: CALCIUM 8.9 mg/dL (8.5-10.1)
[2024-05-19 07:42] LABS: ALBUMIN 2.9 g/dl (3.4-5.0); BLOOD UREA NITROGEN 21.8 mg/dL (7-18)
[2024-05-19 07:45] LABS: CREATININE 1.9 mg/dL (0.55-1.3)
[2024-05-19 07:47] LABS: BILIRUBIN,TOTAL 0.2 mg/dL (0.2-1); TOT PROT 7.1 g/dl (6.4-8.2)
[2024-05-19] MEDS ORDERED: hydrALAZINE HCL 10 MG TABLET PO SCH ×2 (10:00→14:00)
[2024-05-19] MEDS: IRON SUCROSE INJECTION 200 MG in SODIUM CHLORIDE 100 ML IVPB ONE (11:26)
[2024-05-20 10:40] VITALS: BP 146/86; PULSE 76; RESP 20; TEMP 98
== END 2024-05-20 10:53 | disposition home or self-care (01) | DRG 385 ==
LOC: JER 16:21 → JERBED 21:41 → J7W 23:21 → OBSVTOIN 05-15 09:44
PROVIDERS: ADMIT Internal Medicine; ATTEND Nurse Practitioner Family
DX: L73.2 Hidradenitis suppurativa (principal); J96.11 Chronic respiratory failure with hypoxia; Z99.81 Dependence on supplemental oxygen; F11.20 Opioid dependence, uncomplicated; I13.0 Hypertensive heart and chronic kidney disease with heart failure and stage 1 through stage 4 chronic kidney disease, or unspecified chronic kidney disease; E11.22 Type 2 diabetes mellitus with diabetic chronic kidney disease; I50.9 Heart failure, unspecified; J44.9 Chronic obstructive pulmonary disease, unspecified; N18.9 Chronic kidney disease, unspecified; D50.9 Iron deficiency anemia, unspecified; E78.5 Hyperlipidemia, unspecified; M54.9 Dorsalgia, unspecified; N49.2 Inflammatory disorders of scrotum; E66.9 Obesity, unspecified; Z68.37 Body mass index [BMI] 37.0-37.9, adult
CPT/HCPCS: 36415; 71045-TC-FY; 76882-TC-RT-FY; 80053; 82550; 82962; 83036; 83540; 83550; 83735; 83970; 84100; 85025; 85610; 85651; 85730; 86140; 86850; 86900; 86901; 87040; 87070; 87205; 93005; 93010; 99285-25; G0378; J0131; J1644; J1756; J3370